=== PATIENT | male | born 1950 | race Caucasian/White ===

== ENCOUNTER 2017-02-08 23:25 | Emergency (ER) | payer MEDICARE, BC ==
[2017-02-09] MEDS ORDERED: MORPHINE SULFATE 5 MG/ML PFS IVP ONE ×2 (00:05→01:01)
[2017-02-09] MEDS ORDERED: ASPIRIN 325 MG TABLET PO ONE (00:05)
[2017-02-09] MEDS ORDERED: NITROGLYCERIN 0.4MG SL TABLET #25 BTL SL PRN (00:05)
--- NOTE | 2017-02-09 00:08 | Emergency Department Record ---
History of Present Illness - General Chief complaint: Extremity Problem Stated complaint: LEFT SHOULDER PAIN Time Seen by Provider: 02/09/17 00:01 Source: Patient Mode of Arrival: Ambulatory - History of Present Illness Initial comments: The patient has had increasing shoulder pain to his left shoulder for about 33 hours, around 3 p.m. on 02-07-17, he denies injury, but he states this happened to his right shoulder when he needed a rotator cuff repair. He is unable to lift his shoulder, and the pain is enough to not allow him to sleep. He denies chest pain, JANEL, N, sweating. Cardiac risks include 1/2PPD smoker, htn, elevated cholesterol. In the past he was worked up for cardiac problems for presenting with chest pain, but he was told it was not a heart attack. He denies PE, DVT, CVA. MD Complaint: Extremity pain Onset/Timin -: Days(s) Location: Left, Shoulder History of Same: No Severity scale (1-10): 8 Quality: Sharp Consistency: Constant, Getting worse Improves with: Rest Worsens with: Exertion Associated Symptoms: Denies other symptoms - Related Data Home Medications Medication Instructions Recorded Confirmed Last Taken Alprazolam [Xanax] 0.25 mg PO Q8H PRN 02/09/17 02/09/17 Unknown Aspirin 81 mg PO QPM 02/09/17 02/09/17 Unknown Atenolol [Tenormin] 100 mg PO DAILY 02/09/17 02/09/17 Unknown Gemfibrozil [Lopid] 600 mg PO BID 02/09/17 02/09/17 Unknown Ipratropium/Albuterol Sulfate 1 - 2 puff IH TID PRN 02/09/17 02/09/17 Unknown [Combivent] Omeprazole [Prilosec] 20 mg PO DAILY 02/09/17 02/09/17 Unknown Pravastatin Sodium [Pravachol] 40 mg PO QPM 02/09/17 02/09/17 Unknown Tadalafil [Cialis] 5 mg PO ASDIR PRN 02/09/17 02/09/17 Unknown Varenicline Tartrate [Chantix] 1 each PO DAILY 02/09/17 02/09/17 Unknown Zolpidem Tartrate [Ambien] 10 mg PO QHS 02/09/17 02/09/17 Unknown Previous Rx's Medication Instructions Recorded Hydrocodone/Acetaminophen [[place] 1 each PO Q8HR PRN #14 tablet 02/09/17 7.5-325 Tablet] Allergies Allergy/AdvReac Type Severity Reaction Status Date / Time ibuprofen Allergy Unknown RASH Verified 02/08/17 23:29 NSAIDS (Non-Steroidal Allergy Unknown RASH Verified 02/08/17 23:29 Anti-Inflamma Pyrazoles Allergy Unknown PT UNSURE Verified 02/08/17 23:29 OF REACTION Salicylates * Allergy Unknown PT UNSURE Verified 02/08/17 23:29 OF REACTION Travel Screening - Travel/Exposure Within Last 30 Days Have you traveled within the last 30 days?: No - Travel Symptoms Symptom Screening: None Review of Systems Reviewed: No additional complaints except as noted below Constitutional: Reports: As per HPI. Denies: Chills, Fever, Malaise, Night sweats, Weakness, Weight change Eyes: Reports: As per HPI. Denies: Eye discharge, Eye pain, Photophobia, Vision change ENT: Reports: As per HPI. Denies: Congestion, Dental pain, Ear pain, Epistaxis , Hearing loss, Throat pain Respiratory: Reports: As per HPI. Denies: Cough, Dyspnea, Hemoptysis, Stridor, Wheezes Cardiovascular: Reports: As per HPI. Denies: Arrhythmia, Chest pain, Dyspnea on exertion, Edema, Murmurs, Orthopnea, Palpitations, Paroxysmal nocturnal dyspnea, Rheumatic Fever, Syncope Endocrine: Reports: As per HPI. Denies: Fatigue, Heat or cold intolerance, Polydipsia, Polyuria Gastrointestinal: Reports: As per HPI. Denies: Abdominal pain, Constipation, Diarrhea, Hematemesis, Hematochezia, Melena, Nausea, Vomiting Genitourinary: Reports: As per HPI. Denies: Dysuria, Frequency, Hematuria, Incontinence, Retention, Testicular pain, Testicular mass, Urgency Musculoskeletal: Reports: As per HPI. Denies: Arthralgia, Back pain, Gout, Joint swelling, Myalgia, Neck pain Skin: Reports: As per HPI. Denies: Bruising, Change in color, Change in hair/ nails, Lesions, Pruritus, Rash Neurological: Reports: As per HPI. Denies: Abnormal gait, Confusion, Headache, Numbness, Paresthesias, Seizure, Tingling, Tremors, Vertigo, Weakness Psychiatric: Reports: As per HPI. Denies: Anxiety, Auditory hallucinations, Depression, Homicidal thoughts, Suicidal thoughts, Visual hallucinations Hematological/Lymphatic: Reports: As per HPI. Denies: Anemia, Blood Clots, Easy bleeding, Easy bruising, Swollen glands Past Medical History - SOCIAL HISTORY Smoking Status: Current every day smoker - RESPIRATORY Hx Respiratory Disorders: Yes Hx COPD: Yes Hx Sleep Apnea: Yes Hx of CPAP: No Comment:: sleep issues - CARDIOVASCULAR Hx Cardio Disorders: Yes Hx Cardiac Cath: Yes Hx Heart Attack: Yes Hx Hypertension: Yes Comment:: high cholesterol - NEURO Hx Neuro Disorders: No - GI Hx GI Disorders: Yes Hx Reflux: Yes - Hx Genitourinary Disorders: Yes Comment:: E.D. - ENDOCRINE Hx Endocrine Disorders: No - MUSCULOSKELETAL Hx Musculoskeletal Disorders: Yes - PSYCH Hx Psych Problems: No - HEMATOLOGY/ONCOLOGY Hx Hematology/Oncology Disorders: No Family Medical History Any Significant Family History?: Yes Hx Cancer: Mother, Brother/Sister *Cancer Comment: Lung Physical Exam - General General Appearance: Alert, Oriented x3, Cooperative, Moderate distress - Head Head exam: Normal inspection - Eye Eye exam: Normal appearance, PERRL Pupils: Normal accommodation - ENT ENT exam: Normal exam, Mucous membranes moist, Normal external ear exam, Normal orophraynx, TM's normal bilaterally Ear exam: Normal external inspection. negative: External canal tenderness Nasal Exam: Normal inspection. negative: Discharge, Sinus tenderness Mouth exam: Normal external inspection, Tongue normal Teeth exam: Normal inspection. negative: Dental caries Throat exam: Normal inspection. negative: Tonsillar erythema, Tonsillar exudate - Neck Neck exam: Normal inspection, Full ROM. negative: Tenderness - Respiratory Respiratory exam: Normal lung sounds bilaterally. negative: Respiratory distress - Cardiovascular Cardiovascular Exam: Regular rate, Normal rhythm, Normal heart sounds - GI/Abdominal GI/Abdominal exam: Soft, Normal bowel sounds. negative: Tenderness - Rectal Rectal exam: Deferred - exam: Deferred - Extremities Extremities exam: Normal inspection, Full ROM, Normal capillary refill, Tenderness (Right shoulder with tenderness over the joint and deltoid region, unable to perform ROM due to pain; distal pulses, strength and sensation intact , strong jai alai player equal bilaterally.). negative: Calf tenderness, Pedal edema - Back Back exam: Reports: Normal inspection, Full ROM. Denies: Muscle spasm, Rash noted, Tenderness - Neurological Neurological exam: Alert, Normal gait, Oriented X3, Reflexes normal - Psychiatric Psychiatric exam: Normal affect, Normal mood - Skin Skin exam: Dry, Intact, Normal color, Warm Course Vital Signs 02/08/17 23:32 Temperature 97.9 F Pulse Rate 76 Respiratory 16 Rate Blood Pressure 163/92 Pulse Ox 88 L - Reevaluation(s) Reevaluation #1: The patient's shoulder pain did not improve with nitro. His BP dropped moderately. He reports the pain has lessened when he keeps his shoulder at rest , but he is still unable to lift it up. Second morphine dose ordered. 02/09/17 01:02 02/09/17 01:09 Medical Decision Making - Data Complexity MDM Data: Labs Ordered and/or Reviewed, X-Ray Ordered and/or Reviewed (CTA Chest : No PE. Minimal subpleural fibrotic changes in lung bases. Emphysema.), EKG Ordered and/or Reviewed - Lab Data Result diagrams: 02/09/17 00:15 02/09/17 00:15 - EKG Data -: EKG Interpreted by Me EKG: No Acute Changes Disposition Disposition: Discharge Clinical Impression: Internal derangement of left shoulder Left shoulder pain Qualifiers: Chronicity: acute Qualified Code(s): M25.512 - Pain in left shoulder Disposition: Home, Self-Care Condition: (1) Good Instructions: Rotator Cuff Tendinitis (ED), Adhesive Capsulitis (ED) Additional Instructions: Sling left shoulder. No use of left arm. Perform range of motion exercises to gravity 4 times daily with sling off, then re apply sling. [place] as directed as needed for pain. Follow up with Dr[facility] as directed. Prescriptions: Hydrocodone/Acetaminophen [[place] 7.5-325 Tablet] 1 each PO Q8HR PRN #14 tablet PRN Reason: Pain - General Referrals: ILENE BRUNO [DOCTOR OF OSTEOPATH] - Quality - Quality Measures Quality Measures: N/A - Blood Pressure Screening Does Patient Have Any of the Following: No, Active Dx of HTN Blood Pressure Classification: Hypertensive Reading Systolic Measurement: 163 Diastolic Measurement: 92 Screening for High Blood Pressure: Patient Exclusion, Hx of HTN [G9744]
[2017-02-09 00:25] LABS: BASO % 0.1 % (0-6); EOS % 1.1 % (0-6); HEMATOCRIT 51.6 % (42.0-52.0); HEMOGLOBIN 16.9 gm/dl (14.0-18.0); MEAN CELL VOLUME 86.4 fl (81-97); MEAN CORPUSCULAR HEMOGLOBIN 28.3 pg (27-33); MEAN CORPUSCULAR HGB CONC 32.8 g/dl (32-36); MEAN PLATELET VOLUME 10.9 fl (7.4-10.4); PLATELET COUNT 189 K/uL (130-400); RED BLOOD COUNT 5.97 M/uL (4.40-5.70); RED CELL DISTRIBUTION WIDTH 15.6 % (11.5-14.5); WHITE BLOOD COUNT W/O DIFF 10.6 K/uL (4.2-12.2)
[2017-02-09 00:43] LABS: INR 1.06; PARTIAL THROMBOPLASTIN TIME 35.7 SECONDS (24.5-39.1); PROTHROMBIN TIME (PATIENT) 11.5 SECONDS (9.5-12.1)
[2017-02-09 00:46] LABS: D-DIMER 0.62 mg/L FEU (0-0.59)
[2017-02-09 01:11] LABS: BLOOD UREA NITROGEN 22 mg/dL (9-20); CREATININE 1.1 mg/dL (0.66-1.25); EST GLOMERULAR FILTRATION RATE > 60 ml/min; GLUCOSE,RANDOM 138 mg/dL (70-110)
[2017-02-09 01:41] LABS: THYROID STIMULATING HORMONE 1.28 uIU/ml (0.465-4.68)
[2017-02-09 01:42] LABS: TROPONIN I < 0.012 ng/mL (0.00-0.034)
[2017-02-09] MEDS ORDERED: HYDROCODONE/APAP 7.5/325MG TABLET PO ONE (03:03)
--- NOTE | 2017-02-09 13:49 | RADIOLOGY REPORT ---
EXAM: CHEST, TWO VIEWS HISTORY: ACUTE CHEST PAIN RADIATING TO THE LEFT SHOULDER. TECHNIQUE: Two views of the chest were obtained. Comparison: CTA of the chest 02/09/17. FINDINGS: Mildly prominent coarse reticular opacity throughout. No consolidative change. The cardiac silhouette, diaphragm, and osseous structures are unremarkable. IMPRESSION: MILD FIBROTIC CHANGE THROUGHOUT THE LUNGS. NO ACUTE INTRATHORACIC PROCESS. JOB NUMBER: [id number] MTDD
--- NOTE | 2017-02-09 13:51 | RADIOLOGY REPORT ---
EXAM: LEFT SHOULDER, THREE VIEWS HISTORY: ACUTE LEFT SHOULDER PAIN. NO INJURY. TECHNIQUE: Three views of the left shoulder were obtained. Comparison: None. FINDINGS: Abnormal osteoarthritic change of the left acromioclavicular joint and glenohumeral joint with small osteophytes. No fracture. The acromiohumeral distance is preserved. IMPRESSION: MINIMAL OSTEOARTHRITIC CHANGE OF THE LEFT SHOULDER. NO ACUTE PROCESS. JOB NUMBER: [id number] [facility]TDD
--- NOTE | 2017-02-09 14:35 | CT ANGIOGRAM REPORT ---
EXAM: CTA OF THE CHEST HISTORY: ACUTE LEFT UPPER CHEST PAIN RADIATING TO LEFT SHOULDER. TECHNIQUE: Contiguous axial images from the thoracic inlet to the upper abdomen were obtained after the uneventful intravenous administration of 74 ml of Omnipaque 350. Sagittal and coronal two dimensional MIP as well as 3D/MIP reformatted images were obtained for better anatomic delineation. Comparison: Chest x-ray 02/09/17. FINDINGS: Mild to moderate upper lobe centrilobular emphysema. Peripheral subpleural reticulation throughout the lungs of mild degree. No sinai honeycombing. No consolidative change. The heart is not enlarged and there is no pericardial effusion. Moderate coronary artery calcification. Mildly enlarged right paratracheal lymph nodes measuring up to 1.6 x 1.3 cm. Mildly prominent prevascular lymph node measures 2.4 x 0.9 cm. Mildly prominent right hilar lymph node measures approximately 2.4 x 1.1 cm and mildly prominent left infrahilar lymph node measures 1.6 x 0.8 cm. The pulmonary arteries are well opacified. No filling defect to suggest pulmonary embolism. No thoracic aortic dissection. Moderate calcification of the thoracic aorta. The upper abdomen is unremarkable. Moderate osteoarthritic change of the right glenohumeral joint with subcortical cysts and osteophytes. The left glenohumeral joint is unremarkable. No lytic or blastic osseous lesion. IMPRESSION: 1. NO EVIDENCE OF PULMONARY EMBOLISM OR THORACIC AORTIC DISSECTION. 2. MILD TO MODERATE EMPHYSEMA. 3. MILD FIBROTIC CHANGE THROUGHOUT THE LUNGS. 4. MILD MEDIASTINAL AND HILAR ADENOPATHY OF UNCERTAIN ETIOLOGY. GIVEN THE MILD FIBROSIS SOME POSSIBILITIES WOULD INCLUDE CHRONIC HYPERSENSITIVITY PNEUMONITIS, UIP OR COLLAGEN-VASCULAR DISEASE. JOB NUMBER: [id number] [facility]
== END 2017-02-09 03:21 | disposition home or self-care (01) ==
LOC: ER 23:25
DX: M24.812 Other specific joint derangements of left shoulder, not elsewhere classified (principal); J44.9 Chronic obstructive pulmonary disease, unspecified; I10 Essential (primary) hypertension; I25.2 Old myocardial infarction; F17.210 Nicotine dependence, cigarettes, uncomplicated
CPT/HCPCS: 99284 ×2; 96376; 96374; 85730; 85610; 84484; 80048; 84443; 85379; 85027; 71020; 73030; 71275; 93005; 93010; Q9967; J2270

== ENCOUNTER 2017-02-20 07:01 | Emergency (ER) | payer MEDICARE, BC ==
[2017-02-20] MEDS ORDERED: DEXAMETHASONE SOD PHOSPHATE 10MG/ML VIAL IVP ONE ×2 (07:07→07:09)
[2017-02-20] MEDS ORDERED: ACETAMINOPHEN 1,000 MG/100 ML BTL IVPB ONE (07:07)
[2017-02-20] MEDS ORDERED: KETOROLAC 30 MG/ML VIAL IVP ONE (07:09)
--- NOTE | 2017-02-20 07:15 | Emergency Department Record ---
History of Present Illness - General Chief complaint: Pain Stated complaint: PAIN ALL OVER Time Seen by Provider: 02/20/17 07:06 Source: Patient, Family Mode of Arrival: Ambulatory Limitations: No limitations - History of Present Illness Initial comments: 66 yo male presents with joint aches. His pain started two weeks ago in the left shoulder. Over the time his pain has increased and now both shoulders, wrists, feet and ankles hurt. No fevers. No rash. He has pain with any activity. He states he essentially hurts all over his body. He denies a history of similar symptoms in the past. He states he has been an active person his entire life. He has not seen his doctor for these symptoms. PCP Hank[facility]. MATUTE Complaint: Diffuse, Extremity pain, Joint pain -: Week(s) (2) Location: Right, Bilateral, Ankle, Foot, Shoulder, Other -: Yes Arthralgia Radiation: Distal Quality: Aching Consistency: Constant Improves with: Immobilization Worsens with: Exertion, Palpation, Walking, Weight bearing Associated Symptoms: Denies other symptoms - Related Data Home Medications Medication Instructions Recorded Confirmed Last Taken Alprazolam [Xanax] 0.25 mg PO Q8H PRN 02/09/17 02/20/17 02/19/17 Aspirin 81 mg PO QPM 02/09/17 02/20/17 02/19/17 Atenolol [Tenormin] 100 mg PO DAILY 02/09/17 02/20/17 02/19/17 Gemfibrozil [Lopid] 600 mg PO BID 02/09/17 02/20/17 02/19/17 Ipratropium/Albuterol Sulfate 1 - 2 puff IH TID PRN 02/09/17 02/20/17 02/19/17 [Combivent] Omeprazole [Prilosec] 20 mg PO DAILY 02/09/17 02/20/17 02/19/17 Pravastatin Sodium [Pravachol] 40 mg PO QPM 02/09/17 02/20/17 02/19/17 Tadalafil [Cialis] 5 mg PO ASDIR PRN 02/09/17 02/20/17 02/19/17 Zolpidem Tartrate [Ambien] 10 mg PO QHS 02/09/17 02/20/17 02/19/17 Previous Rx's Medication Instructions Recorded Hydrocodone/Acetaminophen [[place] 1 each PO TID #25 tablet 02/20/17 7.5-325 Tablet] Methylprednisolone [Medrol Dose 4 mg PO DAILY #1 tab.ds.pk 02/20/17 Pack] Allergies Allergy/AdvReac Type Severity Reaction Status Date / Time ibuprofen Allergy Unknown RASH Verified 02/20/17 07:09 NSAIDS (Non-Steroidal Allergy Unknown RASH Verified 02/20/17 07:09 Anti-Inflamma Pyrazoles Allergy Unknown PT UNSURE Verified 02/20/17 07:09 OF REACTION Salicylates * Allergy Unknown PT UNSURE Verified 02/20/17 07:09 OF REACTION Review of Systems Constitutional: Reports: Malaise. Denies: Chills, Fever, Weakness Eyes: Denies: Eye discharge, Eye pain, Photophobia, Vision change ENT: Denies: Congestion, Ear pain, Epistaxis, Hearing loss, Throat pain Respiratory: Denies: Cough, Dyspnea, Hemoptysis, Stridor, Wheezes Cardiovascular: Denies: Arrhythmia, Chest pain, Palpitations, Syncope Endocrine: Denies: Fatigue, Polydipsia, Polyuria Gastrointestinal: Denies: Abdominal pain, Diarrhea, Nausea, Vomiting Genitourinary: Denies: Discharge, Dysuria, Frequency, Hematuria Musculoskeletal: Reports: As per HPI, Arthralgia, Joint swelling, Myalgia. Denies: Gout Skin: Denies: Bruising, Change in color, Rash Neurological: Denies: Confusion, Headache, Numbness, Tingling, Tremors, Weakness Psychiatric: Denies: Anxiety Hematological/Lymphatic: Denies: Blood Clots, Easy bleeding, Easy bruising, Swollen glands Past Medical History - SOCIAL HISTORY Smoking Status: Current every day smoker - RESPIRATORY Hx Respiratory Disorders: Yes Hx COPD: Yes Hx Sleep Apnea: Yes Hx of CPAP: No Comment:: sleep issues - CARDIOVASCULAR Hx Cardio Disorders: Yes Hx Cardiac Cath: Yes Hx Heart Attack: Yes Hx Hypertension: Yes Comment:: high cholesterol - NEURO Hx Neuro Disorders: No - GI Hx GI Disorders: Yes Hx Reflux: Yes - Hx Genitourinary Disorders: Yes Comment:: E.D. - ENDOCRINE Hx Endocrine Disorders: No - MUSCULOSKELETAL Hx Musculoskeletal Disorders: Yes - PSYCH Hx Psych Problems: No - HEMATOLOGY/ONCOLOGY Hx Hematology/Oncology Disorders: No Family Medical History Hx Cancer: Mother, Brother/Sister *Cancer Comment: Lung Physical Exam - General General Appearance: Alert, Oriented x3, Cooperative, No acute distress Limitations: No limitations - Head Head exam: Normal inspection - Eye Eye exam: Normal appearance. negative: Conjunctival injection, Periorbital swelling - ENT ENT exam: Normal exam, Mucous membranes moist Ear exam: Normal external inspection Nasal Exam: Normal inspection Mouth exam: Normal external inspection Throat exam: Normal inspection - Neck Neck exam: Normal inspection, Full ROM. negative: Tenderness - Respiratory Respiratory exam: Normal lung sounds bilaterally. negative: Respiratory distress - Cardiovascular Cardiovascular Exam: Regular rate, Normal rhythm, Normal heart sounds Peripheral Pulses: 2+: Radial (R), Radial (L) - GI/Abdominal GI/Abdominal exam: Soft. negative: Tenderness - Rectal Rectal exam: Deferred - exam: Deferred - Extremities Extremities exam: Full ROM, Joint swelling, Normal capillary refill, Tenderness. negative: Calf tenderness, Pedal edema Image of Full Body: 1 - pain 2 - pain mild right wrist swelling, no warmth, intact pulses 3 - pain 4 - pain - Back Back exam: Reports: Normal inspection, Full ROM. Denies: CVA tenderness (R), CVA tenderness (L), Muscle spasm, Paraspinal tenderness, Rash noted, Tenderness , Vertebral tenderness - Neurological Neurological exam: Alert, Normal gait, Oriented X3, Reflexes normal - Psychiatric Psychiatric exam: Normal affect, Normal mood - Skin Skin exam: Dry, Intact, Normal color, Warm Course - Reevaluation(s) Reevaluation #1: The patient has diffuse body pain. At this time his greatest pain are in the shoulders, wrists, and feet/ankles. 02/20/17 07:15 Reevaluation #2: The CBC was reviewed No acute changes of the WBC of Hgb CMP No acute changes CRP elevated at 4.5 02/20/17 07:54 ESR is 35 XR of the foot demonstrates STS with severe arthritis He has pains is bother shoulders, wrists, and feet. The right foot was XR'd due to it was the most significant area of pain. He will be provided a boot with crutches. I will discuss the case with Dr Kevin for follow up tomorrow. We discussed this could be an autoimmune issue given the recent CT findings as well of adenopathy with some interstitial lung disease. 02/20/17 08:17 Reevaluation #3: I SW Dr Kevin He will follow up with the patient as scheduled tomorrow in the office We discussed the various joints that ache with the labs. He will conduct any follow up testing as needed 02/20/17 09:11 Medical Decision Making - Lab Data Result diagrams: 02/20/17 07:15 02/20/17 07:15 Disposition Disposition: Discharge Clinical Impression: Arthralgia Qualifiers: Joint pain location: unspecified Qualified Code(s): M25.50 - Pain in unspecified joint Disposition: Home, Self-Care Condition: (1) Good Instructions: Arthralgia (ED) Additional Instructions: Follow up with Dr Kevin tomorrow as scheduled Return if you have fever, uncontrolled pain, or any new concerns Prescriptions: Hydrocodone/Acetaminophen [[place] 7.5-325 Tablet] 1 each PO TID #25 tablet Methylprednisolone [Medrol Dose Pack] 4 mg PO DAILY #1 tab.ds.pk Forms: Patient Portal Access Time of Disposition: 09:13 Quality - Quality Measures Quality Measures: N/A - Blood Pressure Screening Does Patient Have Any of the Following: No Blood Pressure Classification: Hypertensive Reading Systolic Measurement: 165 Diastolic Measurement: 106 Screening for High Blood Pressure: < Pre-Hypertensive BP, F/U Documented > [ G8950] Pre-Hypertensive Follow-up Interventions: Referral to alternative/primary care provider.
[2017-02-20 07:25] LABS: HEMATOCRIT 50.5 % (42.0-52.0); HEMOGLOBIN 16.8 gm/dl (14.0-18.0); MEAN CELL VOLUME 84.6 fl (81-97); MEAN CORPUSCULAR HEMOGLOBIN 28.1 pg (27-33); MEAN CORPUSCULAR HGB CONC 33.3 g/dl (32-36); MEAN PLATELET VOLUME 10.2 fl (7.4-10.4); PLATELET COUNT 215 K/uL (130-400); RED BLOOD COUNT 5.97 M/uL (4.40-5.70); RED CELL DISTRIBUTION WIDTH 15.2 % (11.5-14.5); WHITE BLOOD COUNT W/O DIFF 10.3 K/uL (4.2-12.2)
[2017-02-20 07:42] LABS: ALB/GLOB RATIO 1.1 (1.1-1.8); ALBUMIN 4.2 gm/dL (3.5-5.0); ALKALINE PHOSPHATASE 92 U/L (38-126); ALT/SGPT 28 U/L (21-72); ANION GAP 8.1 (7-16); AST/SGOT 19 U/L (17-59); BILIRUBIN,TOTAL 0.76 mg/dL (0.2-1.3); BLOOD UREA NITROGEN 19 mg/dL (9-20); C-REACTIVE PROTEIN 4.9 mg/dL (0.0-0.9); CARBON DIOXIDE 26.9 mmol/L (22-30); CREATINE PHOSPHOKINASE 77 U/L (55-170); EST GLOMERULAR FILTRATION RATE > 60 ml/min; GLUCOSE,RANDOM 142 mg/dL (70-110); TOTAL PROTEIN 8.1 gm/dL (6.3-8.2)
[2017-02-20] MEDS ORDERED: HYDROCODONE/APAP 10/325 TABLET PO ONE (08:05)
[2017-02-20 08:08] LABS: ERYTHROCYTE SEDIMENTATION RATE 35 mm/hr (0-20)
--- NOTE | 2017-02-21 08:26 | RADIOLOGY REPORT ---
EXAM: RIGHT FOOT, THREE VIEWS HISTORY: TWO WEEKS SEVERE PAIN RIGHT FOOT. TECHNIQUE: Three views of the right foot were obtained. Comparison: None. FINDINGS: No acute fracture. Severe osteoarthritic change of the right first MTP with joint space narrowing and prominent osteophytes. No fracture. Mild soft tissue swelling of the mid foot. IMPRESSION: 1. NO ACUTE OSSEOUS ABNORMALITY OF THE RIGHT FOOT. 2. MILD SOFT TISSUE SWELLING IN THE RIGHT MID FOOT. 3. SEVERE OSTEOARTHRITIC CHANGE OF THE RIGHT FIRST MTP. [facility]: [id number] [facility]
== END 2017-02-20 09:42 | disposition home or self-care (01) ==
LOC: ER 07:01
DX: M25.571 Pain in right ankle and joints of right foot (principal); M25.512 Pain in left shoulder; M25.511 Pain in right shoulder; M25.572 Pain in left ankle and joints of left foot; M25.531 Pain in right wrist; I10 Essential (primary) hypertension; I25.2 Old myocardial infarction; F17.210 Nicotine dependence, cigarettes, uncomplicated
CPT/HCPCS: 99284 ×2; 96365; 96375; 84550; 82550; 83735; 85651; 86140; 80053; 85027; 73630; J1885; J3490; J1100

== ENCOUNTER 2017-08-26 07:30 | Emergency (ER) | payer MEDICARE ==
[2017-08-26] MEDS ORDERED: METHYLNALTREXONE BROMIDE (RELISTOR) 12MG/0.6ML SYRINGE SQ ONE (08:09)
[2017-08-26 08:13] LABS: BASO % 0.1 % (0-6); EOS % 0.7 % (0-6); GRAN % 79.6 % (47-80); HEMATOCRIT 49.9 % (42.0-52.0); HEMOGLOBIN 16.3 gm/dl (14.0-18.0); MEAN CELL VOLUME 84.4 fl (81-97); MEAN CORPUSCULAR HEMOGLOBIN 27.5 pg (27-33); MEAN CORPUSCULAR HGB CONC 32.7 g/dl (32-36); MEAN PLATELET VOLUME 10.6 fl (7.4-10.4); MONO % 7.6 % (0-9); PLATELET COUNT 267 K/uL (130-400); RED BLOOD COUNT 5.91 M/uL (4.40-5.70); RED CELL DISTRIBUTION WIDTH 21.4 % (11.5-14.5); WHITE BLOOD COUNT W/O DIFF 8.8 K/uL (4.2-12.2)
--- NOTE | 2017-08-26 08:20 | Emergency Department Record ---
History of Present Illness - General Chief Complaint: Abdominal Pain Stated Complaint: STOMACH BLOATED Time Seen by Provider: 08/26/17 07:59 Source: Patient, RN notes reviewed Mode of Arrival: Ambulatory - History of Present Illness Initial Comments: constipation secondary to oxycontin. Patient started on this about 6 weeks ago for RA and he has not had a BM for 4 days. He had a colonoscopy 3 years ago and no pathology.Patient has tried miralax and senna without relief. Onset/Timin -: Days(s) Location: Diffuse Radiation: None Consistency: Constant Improves With: Nothing Worsens With: Other Associated Symptoms: Denies other symptoms - Related Data Home Medications Medication Instructions Recorded Confirmed Last Taken Methotrexate Sodium [Trexall] 2.5 mg PO WEEKLY 08/26/17 08/26/17 Unknown Oxycodone HCl/Acetaminophen 10 mg PO Q6H 08/26/17 08/26/17 Unknown [Percocet 10mg/325mg] Prednisone [Prednisone 5Mg] 5 mg PO DAILY 08/26/17 08/26/17 Unknown Allergies Allergy/AdvReac Type Severity Reaction Status Date / Time ibuprofen Allergy Unknown RASH Verified 02/20/17 07:09 NSAIDS (Non-Steroidal Allergy Unknown RASH Verified 02/20/17 07:09 Anti-Inflamma Pyrazoles Allergy Unknown PT UNSURE Verified 02/20/17 07:09 OF REACTION Salicylates * Allergy Unknown PT UNSURE Verified 02/20/17 07:09 OF REACTION Travel Screening - Travel/Exposure Within Last 30 Days Have you traveled within the last 30 days?: No Review of Systems Reviewed: No additional complaints except as noted below Constitutional: Reports: As per HPI. Denies: Chills, Fever, Malaise, Night sweats, Weakness, Weight change Eyes: Reports: As per HPI. Denies: Eye discharge, Eye pain, Photophobia, Vision change ENT: Reports: As per HPI. Denies: Congestion, Dental pain, Ear pain, Epistaxis , Hearing loss, Throat pain Respiratory: Reports: As per HPI. Denies: Cough, Dyspnea, Hemoptysis, Stridor, Wheezes Cardiovascular: Reports: As per HPI. Denies: Arrhythmia, Chest pain, Dyspnea on exertion, Edema, Murmurs, Orthopnea, Palpitations, Paroxysmal nocturnal dyspnea, Rheumatic Fever, Syncope Endocrine: Reports: As per HPI. Denies: Fatigue, Heat or cold intolerance, Polydipsia, Polyuria Gastrointestinal: Reports: As per HPI, Constipation. Denies: Abdominal pain, Diarrhea, Hematemesis, Hematochezia, Melena, Nausea, Vomiting Genitourinary: Reports: As per HPI. Denies: Dysuria, Frequency, Hematuria, Incontinence, Retention, Testicular pain, Testicular mass, Urgency Musculoskeletal: Reports: As per HPI. Denies: Arthralgia, Back pain, Gout, Joint swelling, Myalgia, Neck pain Skin: Reports: As per HPI. Denies: Bruising, Change in color, Change in hair/ nails, Lesions, Pruritus, Rash Neurological: Reports: As per HPI. Denies: Abnormal gait, Confusion, Headache, Numbness, Paresthesias, Seizure, Tingling, Tremors, Vertigo, Weakness Psychiatric: Reports: As per HPI. Denies: Anxiety, Auditory hallucinations, Depression, Homicidal thoughts, Suicidal thoughts, Visual hallucinations Hematological/Lymphatic: Reports: As per HPI. Denies: Anemia, Blood Clots, Easy bleeding, Easy bruising, Swollen glands Past Medical History - SOCIAL HISTORY Smoking Status: Current every day smoker Alcohol Use: Rare Drug Use: None - RESPIRATORY Hx Respiratory Disorders: Yes Hx COPD: Yes Hx Sleep Apnea: Yes Hx of CPAP: No Comment:: sleep issues - CARDIOVASCULAR Hx Cardio Disorders: Yes Hx Cardiac Cath: Yes Hx Heart Attack: Yes Hx Hypertension: Yes Comment:: high cholesterol - NEURO Hx Neuro Disorders: No - GI Hx GI Disorders: Yes Hx Reflux: Yes - Hx Genitourinary Disorders: Yes Comment:: E.D. - ENDOCRINE Hx Endocrine Disorders: No - MUSCULOSKELETAL Hx Musculoskeletal Disorders: Yes - PSYCH Hx Psych Problems: No - HEMATOLOGY/ONCOLOGY Hx Hematology/Oncology Disorders: No Family Medical History Any Significant Family History?: Yes Hx Cancer: Mother, Brother/Sister *Cancer Comment: Lung Physical Exam - General General Appearance: Alert, Oriented x3, Cooperative, No acute distress - Head Head exam: Normal inspection - Eye Eye exam: Normal appearance, PERRL Pupils: Normal accommodation - ENT ENT exam: Normal exam, Mucous membranes moist, Normal external ear exam, Normal orophraynx, TM's normal bilaterally Ear exam: Normal external inspection. negative: External canal tenderness Nasal Exam: Normal inspection. negative: Discharge, Sinus tenderness Mouth exam: Normal external inspection, Tongue normal Teeth exam: Normal inspection. negative: Dental caries Throat exam: Normal inspection. negative: Tonsillar erythema, Tonsillar exudate - Neck Neck exam: Normal inspection, Full ROM. negative: Tenderness - Respiratory Respiratory exam: Normal lung sounds bilaterally. negative: Respiratory distress - Cardiovascular Cardiovascular Exam: Regular rate, Normal rhythm, Normal heart sounds - GI/Abdominal GI/Abdominal exam: Soft, Normal bowel sounds. negative: Tenderness - Rectal Rectal exam: Deferred - exam: Deferred - Extremities Extremities exam: Normal inspection, Full ROM, Normal capillary refill. negative: Tenderness - Back Back exam: Reports: Normal inspection, Full ROM. Denies: Muscle spasm, Rash noted, Tenderness - Neurological Neurological exam: Alert, Normal gait, Oriented X3, Reflexes normal - Psychiatric Psychiatric exam: Normal affect, Normal mood - Skin Skin exam: Dry, Intact, Normal color, Warm Course Vital Signs 08/26/17 07:33 Temperature 98.5 F Pulse Rate 56 L Respiratory 22 Rate Blood Pressure 141/127 Pulse Ox 94 L good results from enema Medical Decision Making - Lab Data Result diagrams: 08/26/17 08:12 08/26/17 08:12 Disposition Clinical Impression: Constipation Qualifiers: Constipation type: drug induced constipation Qualified Code(s): K59.03 - Drug induced constipation Disposition: Home, Self-Care Condition: (1) Good Instructions: Constipation (ED) Additional Instructions: use miralax daily and senna daily follow up with family Forms: Patient Portal Access Time of Disposition: 09:21 Quality - Quality Measures Quality Measures: N/A - Blood Pressure Screening Does Patient Have Any of the Following: No, Active Dx of HTN Blood Pressure Classification: Hypertensive Reading Systolic Measurement: 141 Diastolic Measurement: 127 Screening for High Blood Pressure: Patient Exclusion, Hx of HTN [G9744]
[2017-08-26 08:23] LABS: BLOOD UREA NITROGEN 24 mg/dL (8-23); EST GLOMERULAR FILTRATION RATE > 60 mL/min
[2017-08-26 08:26] LABS: GLUCOSE,RANDOM 143 mg/dL (74-109)
== END 2017-08-26 09:30 | disposition home or self-care (01) ==
LOC: ER 07:30
DX: K59.03 Drug induced constipation (principal); T40.2X5A Adverse effect of other opioids, initial encounter; M06.9 Rheumatoid arthritis, unspecified; I10 Essential (primary) hypertension; I25.2 Old myocardial infarction; F17.210 Nicotine dependence, cigarettes, uncomplicated
CPT/HCPCS: 80048; 85025; 99283

== ENCOUNTER 2017-08-30 06:34 | Emergency (ER) | payer MEDICARE ==
[2017-08-30 07:00] LABS: EOS % 0.9 % (0-6); GRAN % 78.7 % (47-80); HEMATOCRIT 49.5 % (42.0-52.0); HEMOGLOBIN 16.4 gm/dl (14.0-18.0); LYMPH % 12.8 % (16-45); MEAN CORPUSCULAR HEMOGLOBIN 27.8 pg (27-33); MEAN CORPUSCULAR HGB CONC 33.1 g/dl (32-36); MEAN PLATELET VOLUME 10.8 fl (7.4-10.4); MONO % 7.6 % (0-9); PLATELET COUNT 253 K/uL (130-400); RED BLOOD COUNT 5.89 M/uL (4.40-5.70); RED CELL DISTRIBUTION WIDTH 21.1 % (11.5-14.5); WHITE BLOOD COUNT W/O DIFF 8.8 K/uL (4.2-12.2)
[2017-08-30] MEDS ORDERED: 0.9 % SODIUM CHLORIDE 1000ML 500 ML IV SCH (07:00)
[2017-08-30 07:10] LABS: BLOOD UREA NITROGEN 26 mg/dL (8-23); EST GLOMERULAR FILTRATION RATE > 60 mL/min
[2017-08-30 07:11] LABS: TOTAL PROTEIN 7.1 g/dL (6.6-8.7)
[2017-08-30 07:13] LABS: GLUCOSE,RANDOM 131 mg/dL (74-109)
[2017-08-30] MEDS ORDERED: METOPROLOL TART 5 MG/5 ML VIAL IV ONE (07:14)
--- NOTE | 2017-08-30 07:14 | Emergency Department Record ---
History of Present Illness - General Chief Complaint: Abdominal Pain Stated Complaint: ABD PAIN Time Seen by Provider: 08/30/17 06:52 Source: Patient Mode of Arrival: Ambulatory Limitations: No limitations - History of Present Illness Initial Comments: The patient is here due to a one week hx of abdominal bloating and constipation. The patient states he started Oxycodone 3 weeks ago for RA pain but did stop it a week ago due to the constipation. He was here in the ER 4 days ago and did receive an enema and was better. Now he is having more JANEL and a little leg swelling. He denies any CP, fever, chills, or back pain. The patient does state he has had palpitations off and on for weeks but it does not really bother him much. MD Complaint: Abdominal pain Onset/Timin -: Week(s) Severity: Moderate Consistency: Getting worse Improves With: Nothing Worsens With: Nothing Associated Symptoms: Constipation - Related Data Allergies Allergy/AdvReac Type Severity Reaction Status Date / Time ibuprofen Allergy Unknown RASH Verified 02/20/17 07:09 NSAIDS (Non-Steroidal Allergy Unknown RASH Verified 02/20/17 07:09 Anti-Inflamma Pyrazoles Allergy Unknown PT UNSURE Verified 02/20/17 07:09 OF REACTION Salicylates * Allergy Unknown PT UNSURE Verified 02/20/17 07:09 OF REACTION Travel Screening - Travel/Exposure Within Last 30 Days Have you traveled within the last 30 days?: No - Travel/Exposure Within Last Year Have you traveled outside the [place] in the last year?: No - Additonal Travel Details Have you been exposed to anyone with a communicable illness?: No - Travel Symptoms Symptom Screening: None Review of Systems Constitutional: Denies: Chills, Fever Eyes: Denies: Eye discharge ENT: Denies: Congestion Respiratory: Reports: Dyspnea. Denies: Cough Cardiovascular: Denies: Arrhythmia, Chest pain Endocrine: Reports: Fatigue Gastrointestinal: Reports: Constipation Genitourinary: Denies: Dysuria Musculoskeletal: Denies: Arthralgia Past Medical History - SOCIAL HISTORY Smoking Status: Current every day smoker Alcohol Use: None Drug Use: None - RESPIRATORY Hx Respiratory Disorders: Yes Hx COPD: Yes Hx Sleep Apnea: Yes Hx of CPAP: No Comment:: sleep issues - CARDIOVASCULAR Hx Cardio Disorders: Yes Hx Cardiac Cath: Yes Hx Heart Attack: Yes Hx Hypertension: Yes Comment:: high cholesterol - NEURO Hx Neuro Disorders: No - GI Hx GI Disorders: Yes Hx Reflux: Yes - Hx Genitourinary Disorders: Yes Comment:: E.D. - ENDOCRINE Hx Endocrine Disorders: No - MUSCULOSKELETAL Hx Musculoskeletal Disorders: Yes - PSYCH Hx Psych Problems: No - HEMATOLOGY/ONCOLOGY Hx Hematology/Oncology Disorders: No Family Medical History Any Significant Family History?: Yes Hx Cancer: Mother, Brother/Sister *Cancer Comment: Lung Physical Exam - General General Appearance: Alert, Oriented x3, Cooperative, No acute distress - Head Head exam: Atraumatic, Normocephalic, Normal inspection - Eye Eye exam: Normal appearance, PERRL - ENT Throat exam: Normal inspection. negative: Tonsillar erythema, Tonsillar exudate - Neck Neck exam: Normal inspection, Full ROM. negative: Tenderness - Respiratory Respiratory exam: Decreased breath sounds. negative: Stridor, Wheezes - Cardiovascular Cardiovascular Exam: Irregular rhythm. 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 His HR is 100-120 in Afib and blood pressure stable. He has been back from [place] for a few minutes and appears very comfortable and nontoxic. I did explain to him that it appears the Afib is causing him to be in heart failure. We will give him some IV Lasix and will need to transfer him to a larger hospital. The patient would like to go to [facility] so we will contact them soon for transfer. 08/30/17 07:55 Reevaluation #2: The patient is doing well. His HR is improved and is running around 110 with a stable BP. The abdominal CT does not demonstrate any surgical pathology to the abdomen. Due to that fact we will consult Cardiology and will transfer the patient to [facility]. 08/30/17 08:22 Reevaluation #3: The patient is doing very well at this time. He did urinate 750 cc's at this time and denies any CP or SOB. I did discuss the case with Dr. Moss at [facility] and he does accept the patient in transfer. 08/30/17 08:44 Reevaluation #4: The patient is doing very well at this time. He has diuresed over 1500 cc's of urine and his vitals are stable. The HR is 100-110 and his BP is stable. 08/30/17 12:08 Reevaluation #5: The patient's HR is not slightly elevated at 130's. Due to that fact we will start the patient on Cardizem. 08/30/17 14:20 08/30/17 15:12 The patient's HR is much better at this time. It is mainly around 100 at this time and the patient denies any pain or SOB. Medical Decision Making - Data Complexity MDM Data: Labs Ordered and/or Reviewed, X-Ray Ordered and/or Reviewed, EKG Ordered and/or Reviewed - Lab Data Result diagrams: 08/30/17 06:50 08/30/17 06:50 Lab Results 08/30/17 08/30/17 08/30/17 Range/Units 06:50 06:50 06:50 WBC 8.8 (4.2-12.2) K/uL RBC 5.89 H (4.40-5.70) M/uL Hgb 16.4 (14.0-18.0) gm/dl Hct 49.5 (42.0-52.0) % MCV 84.0 (81-97) fl MCH 27.8 (27-33) pg MCHC 33.1 (32-36) g/dl RDW 21.1 H (11.5-14.5) % Plt Count 253 (130-400) K/uL MPV 10.8 H (7.4-10.4) fl Gran % 78.7 (47-80) % Lymphocytes % 12.8 L (16-45) % Monocytes % 7.6 (0-9) % Eosinophils % 0.9 (0-6) % Basophils % 0.0 (0-6) % Lactic Acid Cancelled 1.2 - EKG Data -: EKG Interpreted by Me (New onset Afib with RVR.) - Radiology Data Radiology results: Report reviewed (CXR: CHF) Disposition Disposition: Transfer Clinical Impression: Atrial fibrillation with RVR Disposition: Acute Care Hospital Transfer Transfer To: [facility] Reason For Transfer: Afib with RVR Accepting Physician: Isa Time Discussed w/Accepting Physician: 08:46 Condition: (2) Stable Instructions: A-fib (Atrial Fibrillation) (ED) Forms: Patient Portal Access Time of Disposition: 08:46 Quality - Quality Measures Quality Measures: N/A - Blood Pressure Screening View Details: Yes Does Patient Have Any of the Following: No Blood Pressure Classification: Hypertensive Reading Systolic Measurement: 114 Diastolic Measurement: 96 Screening for High Blood Pressure: < First Hypertensive BP, F/U Documented > [ G8950] First Hypertensive Follow-up Interventions: Referral to alternative/primary care provider.
[2017-08-30 07:16] LABS: ALB/GLOB RATIO 0.9 (1.1-1.8); ALBUMIN 3.3 g/dL (4.0-5.0); ALKALINE PHOSPHATASE 139 U/L (40-129); ALT/SGPT 32 U/L (<41); AST/SGOT 25 U/L (10.0-50.0)
[2017-08-30 07:27] LABS: INR 1.3; PARTIAL THROMBOPLASTIN TIME 28.5 SECONDS (24.5-39.1)
[2017-08-30] MEDS ORDERED: FUROSEMIDE IV 40MG/4ML VIAL IVP ONE (07:30)
[2017-08-30] MEDS ORDERED: HEPARIN SODIUM 1000 UNIT/1 ML 10ML VIAL IVP ONE (08:30)
[2017-08-30] MEDS ORDERED: HEPARIN SODIUM/D5W 25,000 UNITS/500 ML BAG IV SCH (08:30)
[2017-08-30] MEDS ORDERED: POTASSIUM CHLORIDE 20 MEQ TABLET PO ONE (13:45)
[2017-08-30] MEDS ORDERED: DILTIAZEM 25MG/5ML VIAL IV ONE (14:07)
--- NOTE | 2017-08-31 09:03 | RADIOLOGY REPORT ---
EXAM: CHEST, ONE VIEW HISTORY: DIFFICULTY IN BREATHING. ABDOMINAL DISTENTION. BILATERAL LOWER EXTREMITY SWELLING. TECHNIQUE: Upright AP and lateral views of the chest were obtained. Comparison: Two view chest radiographic examination dated 07/25/17. FINDINGS: The cardiac silhouette projects borderline to mildly enlarged. There are mixed primarily reticular opacities scattered in each lung. These appear slightly more pronounced in the interval raising concern for mild acute edema or infiltrate superimposed on chronic interstitial changes. The lungs and pleural spaces are otherwise clear. There are degenerative changes of the visualized spine and shoulder girdles. IMPRESSION: 1. THE HEART NOW PROJECTS BORDERLINE TO MILDLY ENLARGED. 2. MIXED PRIMARILY RETICULAR OPACITIES SCATTERED IN EACH LUNG APPEARING SLIGHTLY MORE PRONOUNCED IN THE INTERVAL RAISING THE POSSIBILITY OF MILD ACUTE EDEMA OR INFILTRATE SUPERIMPOSED ON CHRONIC INTERSTITIAL CHANGE. JOB NUMBER: [id number] [facility]
--- NOTE | 2017-08-31 09:19 | CT SCAN REPORT ---
EXAM: CT OF THE ABDOMEN AND PELVIS WITHOUT CONTRAST HISTORY: ABDOMINAL SWELLING FOR ONE WEEK. TECHNIQUE: Helical CT examination of the abdomen and pelvis was performed without oral or intravenous contrast administration. Comparison: CT of the chest with contrast dated 05/15/17. FINDINGS: The heart is borderline enlarged. Diffuse atherosclerotic calcification of the coronary arteries. Mixed primarily reticular opacities are again noted in each lung base, right greater than left. These appear slightly more pronounced in the interval raising the possibility of mild edema or infiltrate superimposed on chronic interstitial change. There is a new tiny dependent right pleural effusion. No focal abnormality is demonstrated within the liver, spleen, pancreas, adrenal glands, nor left kidney. There is a small hypodense mass arising exophytically from the lower pole of the right kidney measuring approximately 1.4 cm in diameter. This is nonspecific, but likely a cyst. No cholelithiasis. The wall of the gallbladder appears somewhat prominent in thickness. This may be partially explained by incomplete distention. No biliary ductal dilatation. No new intraabdominal nor retroperitoneal lymphadenopathy. No pelvic mass, lymphadenopathy, or free pelvic fluid. No intrinsic urinary bladder abnormality. Fat density prominence is demonstrated in each inguinal canal left greater than right consistent with spermatic cord lipomas or fat within small inguinal hernia sacs. There is a new small volume of ascites. There is new subcutaneous edema throughout the trunk consistent with anasarca. IMPRESSION: 1. MILD TO MODERATE MIXED OPACITIES WITHIN THE LOWER LUNGS APPEARING SLIGHTLY MORE PRONOUNCED IN THE INTERVAL RAISING THE POSSIBILITY OF MINOR INFILTRATE OR EDEMA SUPERIMPOSED ON CHRONIC INTERSTITIAL CHANGES. 2. BORDERLINE CARDIOMEGALY. NEW TINY DEPENDENT RIGHT PLEURAL EFFUSION. 3. NEW SMALL VOLUME OF ASCITES. ANASARCA. 4. NOT MENTIONED ABOVE IS DIVERTICULOSIS OF THE LEFT COLON WITHOUT EVIDENCE OF DIVERTICULITIS. 5. APPARENT MILD WALL THICKENING OF THE GALLBLADDER WHICH MAY BE PARTIALLY EXPLAINED BY INCOMPLETE DISTENTION. THIS COULD ALSO BE SEEN WITH A HYPOPROTEINEMIC STATE. INFLAMMATION LESS LIKELY. 6. PROBABLE SMALL CYST ARISING EXOPHYTICALLY FROM THE LOWER POLE OF THE LEFT KIDNEY. JOB NUMBER: [id number] [facility]
== END 2017-08-30 15:44 | disposition short-term general hospital (02) ==
LOC: ER 06:34
DX: I48.0 Paroxysmal atrial fibrillation (principal); R10.84 Generalized abdominal pain; R06.00 Dyspnea, unspecified; M06.9 Rheumatoid arthritis, unspecified; I50.9 Heart failure, unspecified; I10 Essential (primary) hypertension; I25.2 Old myocardial infarction; F17.210 Nicotine dependence, cigarettes, uncomplicated
CPT/HCPCS: 71045; 74176; 80053; 83605; 83880; 84484; 85025; 85610; 85730; 93005; 93010; 96365; 96366; 96375; 99285; J1940; J7030

== ENCOUNTER 2017-09-08 17:16 | Emergency (ER) | payer MEDICARE ==
[2017-09-08] MEDS ORDERED: RIVAROXABAN 20 MG TABLET PO ONE (17:30)
[2017-09-08 17:57] LABS: HEMATOCRIT 52.4 % (42.0-52.0); HEMOGLOBIN 17.1 gm/dl (14.0-18.0); MEAN CELL VOLUME 83.8 fl (81-97); MEAN CORPUSCULAR HGB CONC 32.6 g/dl (32-36); MEAN PLATELET VOLUME 10.7 fl (7.4-10.4); PLATELET COUNT 201 K/uL (130-400); RED BLOOD COUNT 6.25 M/uL (4.40-5.70); RED CELL DISTRIBUTION WIDTH 20.7 % (11.5-14.5); WHITE BLOOD COUNT W/O DIFF 9.2 K/uL (4.2-12.2)
[2017-09-08 18:00] LABS: MEAN CORPUSCULAR HEMOGLOBIN 27.3 pg (27-33)
--- NOTE | 2017-09-08 18:05 | Emergency Department Record ---
History of Present Illness - General Chief Complaint: Arrythmia/Palpitations Stated Complaint: HIGH BP/SHAKEY Time Seen by Provider: 09/08/17 17:46 Source: Patient Mode of Arrival: Ambulatory Limitations: No limitations - History of Present Illness Initial Comments: The patient is here due to developing palpitations and SOB this AM after waking up. He was recently admitted to [facility] a week ago due to new onset Afib and was discharged 4 days ago. The patient had been well up until this AM when he felt like he may be in Afib again. Additionally he became nervous and his BP was mildly elevated. There was no complaint of chest pain, back pain, cough, or fever. Due to the recent events he presented to the ER for treatment. Presently the patient feels much better and feels he is back to normal. The patient was discharge on Xarelto but has not taken it for 3 days due to needing it preauthorized. Complaint: Palpitations Onset/Timin -: Days(s) Context: Awoke with symptoms, Occurred during rest Arrythmia History: Atrial fibrillation Associated Symptoms: Shortness of breath - Related Data Home Medications Medication Instructions Recorded Confirmed Last Taken Diltiazem HCl [Diltiazem ER] 240 mg PO DAILY 09/08/17 09/08/17 1 Day Ago ~09/07/17 Folic Acid 1 mg PO DAILY 09/08/17 09/08/17 1 Day Ago ~09/07/17 Furosemide [Lasix] 20 mg PO DAILY 09/08/17 09/08/17 1 Day Ago ~09/07/17 Metoprolol Succinate [Toprol Xl] 25 mg PO DAILY 09/08/17 09/08/17 1 Day Ago ~09/07/17 Rivaroxaban [Xarelto] 20 mg PO DAILY 09/08/17 09/08/17 1 Day Ago ~09/07/17 Tiotropium Br/Olodaterol HCl 2 puff IH QPM 09/08/17 09/08/17 1 Day Ago [Stiolto Respimat Inhal [place]] ~09/07/17 Allergies Allergy/AdvReac Type Severity Reaction Status Date / Time ibuprofen Allergy Unknown RASH Verified 09/08/17 17:20 NSAIDS (Non-Steroidal Allergy Unknown RASH Verified 09/08/17 17:20 Anti-Inflamma Pyrazoles Allergy Unknown PT UNSURE Verified 09/08/17 17:20 OF REACTION Salicylates * Allergy Unknown PT UNSURE Verified 09/08/17 17:20 OF REACTION Travel Screening - Travel/Exposure Within Last 30 Days Have you traveled within the last 30 days?: No - Travel/Exposure Within Last Year Have you traveled outside the [place] in the last year?: No - Additonal Travel Details Have you been exposed to anyone with a communicable illness?: No - Travel Symptoms Symptom Screening: None Review of Systems Constitutional: Denies: Chills, Fever Eyes: Denies: Eye discharge ENT: Denies: Congestion Respiratory: Denies: Cough, Dyspnea Past Medical History - SOCIAL HISTORY Smoking Status: Light tobacco smoker (<10/day) Alcohol Use: None Drug Use: None - RESPIRATORY Hx Respiratory Disorders: Yes Hx COPD: Yes Hx Sleep Apnea: Yes Hx of CPAP: No Comment:: sleep issues - CARDIOVASCULAR Hx Cardio Disorders: Yes Hx Cardiac Cath: Yes Hx Heart Attack: Yes Hx Hypertension: Yes Hx Irregular Heartbeat: Yes (A-Fib) Comment:: high cholesterol - NEURO Hx Neuro Disorders: No - GI Hx GI Disorders: Yes Hx Reflux: Yes - Hx Genitourinary Disorders: Yes Comment:: E.D. - ENDOCRINE Hx Endocrine Disorders: No - MUSCULOSKELETAL Hx Musculoskeletal Disorders: Yes - PSYCH Hx Psych Problems: No - HEMATOLOGY/ONCOLOGY Hx Hematology/Oncology Disorders: No Family Medical History Any Significant Family History?: Yes Hx Cancer: Mother, Brother/Sister *Cancer Comment: Lung Physical Exam - General General Appearance: Alert, Oriented x3, Cooperative, No acute distress - Head Head exam: Atraumatic, Normocephalic, Normal inspection - Eye Eye exam: Normal appearance, PERRL - Neck Neck exam: Normal inspection, Full ROM. negative: Tenderness - Respiratory Respiratory exam: Normal lung sounds bilaterally. negative: Rales, Respiratory distress, Rhonchi, Stridor, Wheezes - Cardiovascular Cardiovascular Exam: Regular rate, Normal rhythm, Normal heart sounds - GI/Abdominal GI/Abdominal exam: Soft, Normal bowel sounds. negative: Tenderness - Extremities Extremities exam: Normal inspection, Full ROM, Normal capillary refill. negative: Pedal edema, Tenderness - Neurological Neurological exam: Alert, Normal gait. negative: Abnormal gait, Motor sensory deficit - Skin Skin exam: negative: Rash Course Vital Signs 09/08/17 17:20 Temperature 97.8 F Pulse Rate 77 Respiratory 18 Rate Blood Pressure 142/93 Pulse Ox 93 L - Reevaluation(s) Reevaluation #1: The patient is doing very well at this time. His BP has been very stable and not elevated during his entire stay in the ER. He has had no CP, SOB, or JANEL and his HR is normal in sinus rhythm. He is to restart his Xarelto and see his PCP next week as planned. 09/08/17 19:50 Reevaluation #2: The patient is doing very well at this time. He is walking with no difficulty and has no CP or SOB. I did again explain the plan to restart his Xarelto and see his PCP next week for recheck. 09/08/17 20:19 Medical Decision Making - Data Complexity MDM Data: Labs Ordered and/or Reviewed, X-Ray Ordered and/or Reviewed, EKG Ordered and/or Reviewed - Lab Data Result diagrams: 09/08/17 17:50 09/08/17 17:50 Lab Results 09/08/17 Range/Units 17:50 WBC 9.2 (4.2-12.2) K/uL RBC 6.25 H (4.40-5.70) M/uL Hgb 17.1 (14.0-18.0) gm/dl Hct 52.4 H (42.0-52.0) % MCV 83.8 (81-97) fl MCH 27.3 (27-33) pg MCHC 32.6 (32-36) g/dl RDW 20.7 H (11.5-14.5) % Plt Count 201 (130-400) K/uL MPV 10.7 H (7.4-10.4) fl Eosinophils % Not Reportable Basophils % Not Reportable - EKG Data -: EKG Interpreted by Me EKG: No Acute Changes, Normal EKG (NSR with no afib.) - Radiology Data Radiology results: Report reviewed (CXR: No obvious abnormalities. Decreased vascular congestion from last week.) Disposition Disposition: Discharge Clinical Impression: Heart palpitations Disposition: Home, Self-Care Condition: (2) Stable Instructions: Heart Palpitations (ED) Additional Instructions: Please continue your regular medicines and see your family doctor for recheck next week. Return to the ER for any worsening issues or problems or for any CP or SOB. Forms: Patient Portal Access Time of Disposition: 20:21 Quality - Quality Measures Quality Measures: N/A - Blood Pressure Screening View Details: Yes Does Patient Have Any of the Following: No Blood Pressure Classification: Pre-Hypertensive BP Reading Systolic Measurement: 128 Diastolic Measurement: 82 Screening for High Blood Pressure: < Pre-Hypertensive BP, F/U Documented > [ G8950] Pre-Hypertensive Follow-up Interventions: Referral to alternative/primary care provider.
[2017-09-08 18:06] LABS: PLATELET ESTIMATE NORMAL (NORMAL)
[2017-09-08 18:10] LABS: BLOOD UREA NITROGEN 23 mg/dL (8-23); CREATININE 1.1 mg/dL (0.7-1.2); EST GLOMERULAR FILTRATION RATE > 60 mL/min
[2017-09-08 18:13] LABS: GLUCOSE,RANDOM 183 mg/dL (74-109)
[2017-09-08 18:16] LABS: CREATINE PHOSPHOKINASE 25 U/L (39-308)
[2017-09-08 18:17] LABS: CKMB 1.2 ng/mL (<6.73)
[2017-09-09] MEDS ORDERED: RIVAROXABAN 20 MG TABLET PO SCH (17:30)
--- NOTE | 2017-09-10 07:34 | RADIOLOGY REPORT ---
EXAM: CHEST, TWO VIEWS HISTORY: DIFFICULTY BREATHING AND HEART PALPITATIONS. HIGH BLOOD PRESSURE. TECHNIQUE: PA and lateral upright views of the chest were obtained. Comparison: 08/30/17. FINDINGS: The heart is normal in size. There is mild prominence of the pulmonary vasculature which has decreased when compared to the prior study. Minor interstitial infiltrates at the lung bases have also decreased from the prior study. There is no pneumothorax or effusion. The bones appear intact. IMPRESSION: MILD PULMONARY VASCULAR CONGESTION AND INTERSTITIAL INFILTRATES WHICH HAVE DECREASED FROM THE PRIOR STUDY. NO NEW ABNORMALITIES. [facility]BER: [id number] [facility]
== END 2017-09-08 20:31 | disposition home or self-care (01) ==
LOC: ER 17:16
DX: I48.91 Unspecified atrial fibrillation (principal); R06.02 Shortness of breath; J44.9 Chronic obstructive pulmonary disease, unspecified; Z99.81 Dependence on supplemental oxygen; I10 Essential (primary) hypertension; F17.210 Nicotine dependence, cigarettes, uncomplicated; Z79.01 Long term (current) use of anticoagulants; I25.2 Old myocardial infarction
CPT/HCPCS: 71046; 80048; 82550; 82553; 83880; 84484; 85027; 93005; 93010; 99284

== ENCOUNTER 2017-11-25 18:22 | Observation (INO) | payer MEDICARE ==
--- NOTE | 2017-11-25 18:49 | Emergency Department Record ---
History of Present Illness - General Chief Complaint: Difficulty Breathing Stated Complaint: JANEL,SWELLING FEET,AFIB Time Seen by Provider: 11/25/17 18:31 Source: Patient Mode of Arrival: Ambulatory Limitations: No limitations - History of Present Illness Initial Comments: 67 yo male presents to ED for evaluation of difficulty in breathing at home as well as possible atrial fibrillation. Patient reports that he is on oxygen 2-3 L NC for an unknown reason other than low oxygen, but was concerned that he may have slipped into atrial fibrillation again. Patient also reports mild lower extremity swelling bilaterally, reports a history of CHF 13 years ago. Patient has been taking his Xarelto regularly as well. Patient denies fevers, chills, or recent illness. MD Complaint: Shortness of breath Onset/Timin -: Week(s) Severity: Moderate Consistency: Constant Improves With: Nothing Worsens With: Nothing Known History Of: Congestive heart failure Associated Symptoms: Edema Treatments Prior to Arrival: None - Related Data Home Oxygen Therapy: Yes Home Oxygen Amount: 2 Liters Allergies Allergy/AdvReac Type Severity Reaction Status Date / Time ibuprofen Allergy Unknown RASH Verified 11/25/17 18:39 NSAIDS (Non-Steroidal Allergy Unknown RASH Verified 11/25/17 18:39 Anti-Inflamma Pyrazoles Allergy Unknown PT UNSURE Verified 11/25/17 18:39 OF REACTION Salicylates * Allergy Unknown PT UNSURE Verified 11/25/17 18:39 OF REACTION Travel Screening - Travel/Exposure Within Last 30 Days Have you traveled within the last 30 days?: No Review of Systems Constitutional: Denies: Chills, Fever, Malaise, Night sweats Eyes: Denies: Eye discharge, Eye pain ENT: Denies: Congestion, Ear pain, Epistaxis Respiratory: Reports: Dyspnea. Denies: Cough Cardiovascular: Reports: Edema. Denies: Chest pain, Dyspnea on exertion, Palpitations, Paroxysmal nocturnal dyspnea Endocrine: Denies: Fatigue, Heat or cold intolerance Gastrointestinal: Denies: Abdominal pain, Nausea, Vomiting Genitourinary: Denies: Incontinence, Retention Musculoskeletal: Denies: Arthralgia, Back pain, Gout, Joint swelling Skin: Denies: Bruising, Change in color Neurological: Denies: Abnormal gait, Confusion, Headache, Tingling Psychiatric: Denies: Anxiety Hematological/Lymphatic: Denies: Anemia, Blood Clots Past Medical History - SOCIAL HISTORY Smoking Status: Light tobacco smoker (<10/day) Alcohol Use: None Drug Use: None - RESPIRATORY Hx Respiratory Disorders: Yes Hx Sleep Apnea: Yes Hx of CPAP: No Comment:: sleep issues - CARDIOVASCULAR Hx Cardio Disorders: Yes Hx Cardiac Cath: Yes Hx Heart Attack: Yes Hx Hypertension: Yes Hx Irregular Heartbeat: Yes (A-Fib) Comment:: high cholesterol - NEURO Hx Neuro Disorders: No - GI Hx GI Disorders: Yes Hx Reflux: Yes - Hx Genitourinary Disorders: Yes Comment:: E.D. - ENDOCRINE Hx Endocrine Disorders: No - MUSCULOSKELETAL Hx Musculoskeletal Disorders: Yes - PSYCH Hx Psych Problems: No - HEMATOLOGY/ONCOLOGY Hx Hematology/Oncology Disorders: No Family Medical History Any Significant Family History?: Yes Hx Cancer: Mother, Brother/Sister *Cancer Comment: Lung Physical Exam - General General Appearance: Alert, Oriented x3, Cooperative, Mild distress Limitations: No limitations - Head Head exam: Atraumatic, Normocephalic, Normal inspection Head exam detail: negative: Abrasion, Contusion, Bailey's sign, General tenderness, Hematoma, Laceration - Eye Eye exam: Normal appearance. negative: Conjunctival injection, Periorbital swelling, Periorbital tenderness, Scleral icterus - ENT Ear exam: negative: Auricular hematoma, Auricular trauma Nasal Exam: negative: Active bleeding, Discharge, Dried blood, Foreign body Mouth exam: negative: Drooling, Laceration, Tongue elevation - Neck Neck exam: Normal inspection. negative: Meningismus, Tenderness - Respiratory Respiratory exam: Normal lung sounds bilaterally. negative: Respiratory distress, Rhonchi, Stridor, Wheezes - Cardiovascular Cardiovascular Exam: Regular rate, Normal rhythm, Normal heart sounds - GI/Abdominal GI/Abdominal exam: Soft. negative: Rebound, Rigid, Tenderness - Rectal Rectal exam: Deferred - exam: Deferred - Extremities Extremities exam: Pedal edema (1+ bilaterally). negative: Calf tenderness, Tenderness - Back Back exam: Denies: CVA tenderness (R), CVA tenderness (L) - Neurological Neurological exam: Alert, Normal gait, Oriented X3 - Psychiatric Psychiatric exam: Normal affect, Normal mood - Skin Skin exam: Normal color. negative: Abrasion Type of lesion: negative: abrasion Course Vital Signs 11/25/17 18:31 Temperature 98.0 F Pulse Rate 71 Respiratory 20 Rate Blood Pressure 127/81 Pulse Ox 82 L - Reevaluation(s) Reevaluation #1: 11/25/17 18:49 Patient's initial oxygenation was taken on RA, not applicable. O2 on 2.5 L 93- 94%. EKG: NSR with PVCs Normal axis, normal intervals Nonspecific ST-T wave changes are present. Reevaluation #2: 11/25/17 19:24 Labs reviewed, BNP 648, labs are otherwise grossly unremarkable for an acute process. Reevaluation #3: 11/25/17 19:46 CXR: Patchy bilateral infiltrates worse from previous Rocephin and Zithromax ordered to infuse, will admit for significant comorbities and hypoxia. Patient was updated on all results thus far, and is agreement with the plan of care as discussed. Reevaluation #4: 11/25/17 20:06 Case was discussed with Krystal Aguilar, will accept admission at this time. Medical Decision Making - Lab Data Result diagrams: 11/25/17 18:50 11/25/17 18:50 Disposition Disposition: Admit Clinical Impression: Hypoxia CAP (community acquired pneumonia) Qualifiers: Laterality: unspecified laterality Qualified Code(s): J18.9 - Pneumonia, unspecified organism Disposition: Still a Patient at [facility] Decision to Admit: Admit from ER Decision to Admit Date: 11/25/17 Decision to Admit Time: 20:07 Condition: (2) Stable Forms: Patient Portal Access Time of Disposition: 20:07 Quality - Quality Measures Quality Measures: N/A - Blood Pressure Screening Does Patient Have Any of the Following: Active Dx of HTN Blood Pressure Classification: Pre-Hypertensive BP Reading Systolic Measurement: 127 Diastolic Measurement: 81 Screening for High Blood Pressure: Patient Exclusion, Hx of HTN [[id number]]
[2017-11-25 18:55] LABS: BASO % 0.1 % (0-6); EOS % 3.4 % (0-6); GRAN % 79.9 % (47-80); HEMATOCRIT 43.8 % (42.0-52.0); HEMOGLOBIN 14.5 gm/dl (14.0-18.0); LYMPH % 9.6 % (16-45); MEAN CELL VOLUME 92.4 fl (81-97); MEAN CORPUSCULAR HEMOGLOBIN 30.6 pg (27-33); MEAN CORPUSCULAR HGB CONC 33.1 g/dl (32-36); MEAN PLATELET VOLUME 10.2 fl (7.4-10.4); PLATELET COUNT 232 K/uL (130-400); RED BLOOD COUNT 4.74 M/uL (4.40-5.70); RED CELL DISTRIBUTION WIDTH 18.7 % (11.5-14.5); WHITE BLOOD COUNT W/O DIFF 9.9 K/uL (4.2-12.2)
[2017-11-25 19:09] LABS: BLOOD UREA NITROGEN 12 mg/dL (8-23)
[2017-11-25 19:10] LABS: CREATININE 0.8 mg/dL (0.7-1.2); EST GLOMERULAR FILTRATION RATE > 60 mL/min; TOTAL PROTEIN 6.8 g/dL (6.6-8.7)
[2017-11-25 19:12] LABS: GLUCOSE,RANDOM 157 mg/dL (74-109)
[2017-11-25 19:15] LABS: ALB/GLOB RATIO 0.9 (1.1-1.8); ALBUMIN 3.3 g/dL (4.0-5.0); ALKALINE PHOSPHATASE 77 U/L (40-129); ALT/SGPT 11 U/L (<41); AST/SGOT 14 U/L (10.0-50.0)
[2017-11-25] MEDS ORDERED: AZITHROMYCIN 500 MG in 0.9 % SODIUM CHLORIDE 250ML 250 ML IVPB ONE (19:47)
[2017-11-25] MEDS ORDERED: CEFTRIAXONE SODIUM 1 GM in 0.9 % SODIUM CHLORIDE 100ML 100 ML IVPB SCH ×2 (20:00→21:17)
[2017-11-25] MEDS ORDERED: ALPRAZOLAM 0.25 MG TABLET PO PRN (21:17)
[2017-11-25] MEDS ORDERED: AZITHROMYCIN 500 MG in 0.9 % SODIUM CHLORIDE 250ML 250 ML IVPB SCH (21:17)
[2017-11-25] MEDS ORDERED: ACETAMINOPHEN 500 MG TABLET PO PRN (21:17)
[2017-11-25] MEDS ORDERED: RIVAROXABAN 20 MG TABLET PO SCH (22:00)
[2017-11-25] MEDS ORDERED: ZOLPIDEM TARTRATE 5 MG TABLET PO SCH (22:14)
[2017-11-25] MEDS: OXYCODONE/APAP 10MG-325MG TABLET PO SCH (22:33)
[2017-11-26] MEDS: OXYCODONE/APAP 10MG-325MG TABLET PO SCH ×3 (06:14→09:45)
[2017-11-26] MEDS ORDERED: PANTOPRAZOLE SODIUM 40 MG TABLET PO SCH (07:00)
--- NOTE | 2017-11-26 07:05 | History & Physical ---
History of Present Illness - Date of Service Date of Service for History & Physical: 11/26/17 - History of Present Illness Admitting Diagnosis: CAP. Hypoxia History of Present Illness: 67yo male with CC dyspnea. He has history of afib on anticoagulation with xarelto, CHF, and home oxygen since hospitalization in August of this year. Patient presented to the ED with some difficulty breathing. He thought he may have gone back in to afib as this felt similar to his first episode about 2 months ago. While in the ED, o2 was 89% on his usual 2L. He was afebrile. BNP mildly elevated at 648.48. Troponin was negative. EKG showed NSR with PVC's. CXR showed b/l infiltrates worse from prior study done in August. He had not received any antibiotic therapy since that time. WBC was wnl range at 9.9. He was started on IV rocephin and azithromycin and admitted for CAP. 11/28/17- Patient states he is feeling much better today. He says he is no longer feeling short of breath. He does admit that he has been having cough for the past few weeks. Has been getting mostly clear phlegm up with the cough. denies fever. Last night he became short of breath as well. He has been on home oxygen for the past 2 months since discharging from [facility]. He has been following with a [employer] but isn't sure why he is still on home oxygen, but has another appointment with them in early November. He was diagnosed with afib and CHF exacerbation in August while admitted to [facility]. He was discharged home on lasix and has been taking every day without missed doses. He denies chest pain, lower extremity swelling, or heart palpitations. Travel Screening - Travel/Exposure Within Last 30 Days Have you traveled within the last 30 days?: No - Travel/Exposure Within Last Year Have you traveled outside the [place] in the last year?: No - Additonal Travel Details Have you been exposed to anyone with a communicable illness?: No - Travel Symptoms Symptom Screening: None Review of Systems Constitutional: Denies: Chills, Fever, Malaise, Night sweats Eyes: Denies: Eye discharge, Eye pain ENT: Denies: Congestion, Ear pain, Epistaxis Respiratory: Reports: Dyspnea. Denies: Cough Cardiovascular: Denies: Chest pain, Dyspnea on exertion, Edema, Palpitations, Paroxysmal nocturnal dyspnea Endocrine: Denies: Fatigue, Heat or cold intolerance Gastrointestinal: Denies: Abdominal pain, Nausea, Vomiting Genitourinary: Denies: Incontinence, Retention Musculoskeletal: Denies: Arthralgia, Back pain, Gout, Joint swelling Skin: Denies: Bruising, Change in color Neurological: Denies: Abnormal gait, Confusion, Headache, Tingling Psychiatric: Denies: Anxiety Hematological/Lymphatic: Denies: Anemia, Blood Clots Past Medical History - SOCIAL HISTORY Smoking Status: Light tobacco smoker (<10/day) Alcohol Use: None Drug Use: None - RESPIRATORY Hx Respiratory Disorders: Yes Hx Sleep Apnea: Yes Hx of CPAP: No Comment:: sleep issues - CARDIOVASCULAR Hx Cardio Disorders: Yes Hx Cardiac Cath: Yes Hx Heart Attack: Yes Hx Hypertension: Yes Hx Irregular Heartbeat: Yes (A-Fib) Comment:: high cholesterol - NEURO Hx Neuro Disorders: No - GI Hx GI Disorders: Yes Hx Reflux: Yes - Hx Genitourinary Disorders: Yes Comment:: E.D. - ENDOCRINE Hx Endocrine Disorders: No - MUSCULOSKELETAL Hx Musculoskeletal Disorders: Yes - PSYCH Hx Psych Problems: No - HEMATOLOGY/ONCOLOGY Hx Hematology/Oncology Disorders: No Family Medical History Any Significant Family History?: Yes Hx Cancer: Mother, Brother/Sister *Cancer Comment: Lung H&P Meds/Allergies - Allergies Allergies: Allergies Allergy/AdvReac Type Severity Reaction Status Date / Time ibuprofen Allergy Unknown RASH Verified 11/25/17 18:39 NSAIDS (Non-Steroidal Allergy Unknown RASH Verified 11/25/17 18:39 Anti-Inflamma Pyrazoles Allergy Unknown PT UNSURE Verified 11/25/17 18:39 OF REACTION Salicylates * Allergy Unknown PT UNSURE Verified 11/25/17 18:39 OF REACTION - Home Medications Previous Rx's Medication Instructions Recorded Azithromycin 250 mg PO DAILY #4 tablet 11/26/17 Cefdinir 300 mg PO BID #20 capsule 11/26/17 - Active Medications Active Medications: Current Medications Acetaminophen (Tylenol 500mg Tab) 1,000 mg PO Q6H PRN PRN Reason: PAIN/TEMP Alprazolam (Xanax) 0.5 mg PO Q8H PRN PRN Reason: ANXIETY Last Admin: 11/25/17 22:30 Dose: 0.5 mg Diltiazem HCl (Cardizem Cd) 240 mg PO DAILY [facility] Folic Acid () 1 mg PO DAILY [facility] Furosemide (Lasix) 20 mg PO DAILY [facility] Azithromycin 500 mg/ Sodium (Chloride) 250 mls @ 250 mls/hr IVPB Q24H [facility] Stop: 11/30/17 21:18 Last Infusion: 11/25/17 23:00 Dose: Infused Ceftriaxone Sodium 1 gm/ (Sodium Chloride) 100 mls @ 100 mls/hr IVPB Q24H [facility] Stop: 12/01/17 20:01 Metoprolol Succinate (Toprol Xl) 100 mg PO DAILY [facility] Non-Formulary Medication (Tiotropium Br/Olodaterol Hcl [Stiolto Respimat Inhal [place]]) 2 puff IH QPM [facility] Oxycodone/Acetaminophen (Percocet 10-325 Mg Tablet) 1 each PO Q6H [facility] Last Admin: 11/26/17 06:14 Dose: Not Given Pantoprazole Sodium (Protonix) 40 mg PO DAILYAC [facility] Last Admin: 11/26/17 06:15 Dose: 40 mg Rivaroxaban (Xarelto) 20 mg PO QHS [facility] Last Admin: 11/25/17 22:30 Dose: 20 mg Simvastatin (Zocor) 20 mg PO QHS [facility] Last Admin: 11/25/17 22:30 Dose: 20 mg Zolpidem Tartrate (Ambien) 10 mg PO QHS [facility] Last Admin: 11/25/17 22:30 Dose: 10 mg Physical Exam - Vital Signs Vital Signs: Vital Signs - Last 24 Hrs Temp Pulse Pulse Pulse Resp BP BP 11/26/17 06:00 97.7 F 65 20 11/26/17 02:00 98.1 F 66 18 11/25/17 22:38 70 20 11/25/17 21:17 98.7 F 68 20 11/25/17 20:39 64 24 121/80 11/25/17 19:23 66 24 122/79 11/25/17 18:31 98.0 F 71 20 127/81 BP Pulse Ox 11/26/17 06:00 129/76 96 11/26/17 02:00 102/39 95 11/25/17 22:38 11/25/17 21:17 132/93 94 L 11/25/17 20:39 92 L 11/25/17 19:23 90 L 11/25/17 18:31 82 L - General General Appearance: Alert, Oriented x3, Cooperative, No acute distress Limitations: No limitations - Head Head exam: Atraumatic, Normocephalic, Normal inspection Head exam detail: negative: Abrasion, Contusion, Bailey's sign, General tenderness, Hematoma, Laceration - Eye Eye exam: Normal appearance. negative: Conjunctival injection, Periorbital swelling, Periorbital tenderness, Scleral icterus - ENT Ear exam: negative: Auricular hematoma, Auricular trauma Nasal Exam: negative: Active bleeding, Discharge, Dried blood, Foreign body Mouth exam: negative: Drooling, Laceration, Tongue elevation - Neck Neck exam: Normal inspection. negative: Meningismus, Tenderness - Respiratory Respiratory exam: Rales (bilateral bases). negative: Accessory muscle use, Respiratory distress, Rhonchi, Stridor, Wheezes - Cardiovascular Cardiovascular Exam: Regular rate, Normal rhythm, Normal heart sounds - GI/Abdominal GI/Abdominal exam: Soft. negative: Rebound, Rigid, Tenderness - Rectal Rectal exam: Deferred - exam: Deferred - Extremities Extremities exam: negative: Calf tenderness, Pedal edema, Tenderness - Back Back exam: Denies: CVA tenderness (R), CVA tenderness (L) - Neurological Neurological exam: Alert, Normal gait, Oriented X3 - Psychiatric Psychiatric exam: Normal affect, Normal mood - Skin Skin exam: Normal color. negative: Abrasion Type of lesion: negative: abrasion Results - Labs Result Diagrams: 11/25/17 18:50 11/25/17 18:50 Labs Last 24 Hours: Laboratory Results - last 24 hr 11/25/17 11/25/17 18:50 18:50 WBC 9.9 RBC 4.74 Hgb 14.5 Hct 43.8 MCV 92.4 MCH 30.6 MCHC 33.1 RDW 18.7 H Plt Count 232 MPV 10.2 Gran % 79.9 Lymphocytes % 9.6 L Monocytes % 7.0 Eosinophils % 3.4 Basophils % 0.1 Sodium 139 Potassium 4.2 Chloride 94 L Carbon Dioxide 27.0 Anion Gap 18.0 H BUN 12 Creatinine 0.8 Estimated GFR > 60 Random Glucose 157 H Calcium 8.7 L Total Bilirubin 0.30 AST 14 ALT 11 Alkaline Phosphatase 77 Troponin T < 0.010 NT-Pro-B Natriuret Pep 648.60 H Total Protein 6.8 Albumin 3.3 L Globulin 3.5 Albumin/Globulin Ratio 0.9 L VTE H&P Assessment - Risk for VTE Risk for VTE: Yes Risk Level: High Risk Assessment Date: 11/26/17 Risk Assessment Time: 08:00 VTE Orders Placed or Will Be Placed: Yes Plan - Detailed Diagnosis and Plan (1) CAP (community acquired pneumonia) Status: Acute Qualifiers: Laterality: unspecified laterality Qualified Code(s): J18.9 - Pneumonia, unspecified organism Base Code: J18.9 - PNEUMONIA, UNSPECIFIED ORGANISM Comment: 11/26/17- improving. CXR on 11/25/17 showed worsening of the b/l infiltrates from previous cxr in august. had not received abx therapy in August. WBC count wnl and remains afebrile today. received one dose of IV rocephin and azithro while in the ED. He is currently back to his baseline on home oxygen. -will plan to discharge home today. -will transition to cefdinir 300mg po bid for 10 days and azithromycin 250mg po daily for 4 more days -He has follow up with his pcp on Sunday previously scheduled and has follow up with pulmonology in November. -discussed reasons to return to ED including new or worsening symptoms. (2) Hypoxia Status: Acute Base Code: R09.02 - HYPOXEMIA Comment: 11/26/17- patient on 2L o2 at home since August. Patient denies h/o copd and has been following with pulmonology for this. O2 was 89% on 2L upon arrival improved to 93% today. suspect pna as cause for dyspnea. Does not appear to be fluid overloaded. has been taking his lasix and xarelto without missed doses. -will continue treatment for pna and continue 2L O2 via NC (3) Full code status Status: Acute Base Code: Z78.9 - OTHER SPECIFIED HEALTH STATUS Comment: 11/26- patient is full code (4) DVT prophylaxis Status: Acute Base Code: [id number] - Comment: 11/26/17- patient is high risk with p. afib. -will continue xarelto 20mg po daily
--- NOTE | 2017-11-26 09:17 | Discharge Summary ---
Providers Discharge Summary Date: 11/26/17 Date of admission: 11/25/17 21:11 Expected Date of Discharge: 11/26/17 Attending physician: BARRETT GELLER Primary care physician: SAEID KEVIN D.O. Physical Exam - Vital Signs Vital Signs: Vital Signs - Last 24 Hrs Temp Pulse Pulse Pulse Resp BP BP 11/26/17 06:00 97.7 F 65 20 11/26/17 02:00 98.1 F 66 18 11/25/17 22:38 70 20 11/25/17 21:17 98.7 F 68 20 11/25/17 20:39 64 24 121/80 11/25/17 19:23 66 24 122/79 11/25/17 18:31 98.0 F 71 20 127/81 BP Pulse Ox 11/26/17 06:00 129/76 96 11/26/17 02:00 102/39 95 11/25/17 22:38 11/25/17 21:17 132/93 94 L 11/25/17 20:39 92 L 11/25/17 19:23 90 L 11/25/17 18:31 82 L - General General Appearance: Alert, Oriented x3, Cooperative, No acute distress Limitations: No limitations - Head Head exam: Atraumatic, Normocephalic, Normal inspection Head exam detail: negative: Abrasion, Contusion, Bailey's sign, General tenderness, Hematoma, Laceration - Eye Eye exam: Normal appearance. negative: Conjunctival injection, Periorbital swelling, Periorbital tenderness, Scleral icterus - ENT Ear exam: negative: Auricular hematoma, Auricular trauma Nasal Exam: negative: Active bleeding, Discharge, Dried blood, Foreign body Mouth exam: negative: Drooling, Laceration, Tongue elevation - Neck Neck exam: Normal inspection. negative: Meningismus, Tenderness - Respiratory Respiratory exam: Rales (bilateral bases). negative: Accessory muscle use, Respiratory distress, Rhonchi, Stridor, Wheezes - Cardiovascular Cardiovascular Exam: Regular rate, Normal rhythm, Normal heart sounds - GI/Abdominal GI/Abdominal exam: Soft. negative: Rebound, Rigid, Tenderness - Rectal Rectal exam: Deferred - exam: Deferred - Extremities Extremities exam: negative: Calf tenderness, Pedal edema, Tenderness - Back Back exam: Denies: CVA tenderness (R), CVA tenderness (L) - Neurological Neurological exam: Alert, Normal gait, Oriented X3 - Psychiatric Psychiatric exam: Normal affect, Normal mood - Skin Skin exam: Normal color. negative: Abrasion Type of lesion: negative: abrasion Hospitalization - Hospitalization Admission Diagnosis: CAP. Hypoxia - Problem List/Discharge Diagnosis (1) CAP (community acquired pneumonia) Status: Acute Discharge Diagnosis: Laterality: unspecified laterality Qualified Code(s): J18.9 - Pneumonia, unspecified organism Base Code: J18.9 - PNEUMONIA, UNSPECIFIED ORGANISM Comment: 11/26/17- improving. CXR on 11/25/17 showed worsening of the b/l infiltrates from previous cxr in august. had not received abx therapy in August. WBC count wnl and remains afebrile today. received one dose of IV rocephin and azithro while in the ED. He is currently back to his baseline on home oxygen. -will plan to discharge home today. -will transition to cefdinir 300mg po bid for 10 days and azithromycin 250mg po daily for 4 more days -He has follow up with his pcp on Sunday previously scheduled and has follow up with pulmonology in November. -discussed reasons to return to ED including new or worsening symptoms. (2) Hypoxia Status: Acute Base Code: R09.02 - HYPOXEMIA Comment: 11/26/17- patient on 2L o2 at home since August. Patient denies h/o copd and has been following with pulmonology for this. O2 was 89% on 2L upon arrival improved to 93% today. suspect pna as cause for dyspnea. Does not appear to be fluid overloaded. has been taking his lasix and xarelto without missed doses. -will continue treatment for pna and continue 2L O2 via NC (3) DVT prophylaxis Status: Acute Base Code: [id number] - Comment: 11/26/17- patient is high risk with p. afib. -will continue xarelto 20mg po daily (4) Full code status Status: Acute Base Code: Z78.9 - OTHER SPECIFIED HEALTH STATUS Comment: 11/26- patient is full code - Hospitalization Course Disposition: Home, Self-Care Hospital Course: 67yo male with CC dyspnea. He has history of afib on anticoagulation with xarelto, CHF, and home oxygen since hospitalization in August of this year. Patient presented to the ED with some difficulty breathing. He thought he may have gone back in to afib as this felt similar to his first episode about 2 months ago. While in the ED, o2 was 89% on his usual 2L. He was afebrile. BNP mildly elevated at 648.48. Troponin was negative. EKG showed NSR with PVC's. CXR showed b/l infiltrates worse from prior study done in August. He had not received any antibiotic therapy since that time. WBC was wnl range at 9.9. He was started on IV rocephin and azithromycin and admitted for CAP. 11/28/17- Patient states he is feeling much better today. He says he is no longer feeling short of breath. He does admit that he has been having cough for the past few weeks. Has been getting mostly clear phlegm up with the cough. denies fever. Last night he became short of breath as well. He has been on home oxygen for the past 2 months since discharging from [facility]. He has been following with a family readiness support assistant but isn't sure why he is still on home oxygen, but has another appointment with them in early November. He was diagnosed with afib and CHF exacerbation in August while admitted to [facility]. He was discharged home on lasix and has been taking every day without missed doses. He denies chest pain, lower extremity swelling, or heart palpitations. Procedures: Imaging and X-Rays 11/25/17 18:31 CHEST 2 VIEWS [RAD] Stat Cardiology Procedures 11/25/17 18:44 EKG NOW 11/25/17 21:17 Cart Attendant .Continuous Abnormal Labs: Abnormal Lab Results 11/25/17 11/25/17 Range/Units 18:50 18:50 RDW 18.7 H (11.5-14.5) % Lymphocytes % 9.6 L (16-45) % Chloride 94 L (98-107) mmol/L Anion Gap 18.0 H (7-16) Random Glucose 157 H (74-109) mg/dL Calcium 8.7 L (8.8-10.2) mg/dL NT-Pro-B Natriuret Pep 648.60 H (<125) pg/mL Albumin 3.3 L (4.0-5.0) g/dL Albumin/Globulin Ratio 0.9 L (1.1-1.8) Condition at Discharge: (2) Stable Discharge Medications - Discharge Medications Prescriptions: Azithromycin 250 mg PO DAILY #4 tablet Cefdinir 300 mg PO BID #20 capsule Home Medications: Ambulatory Orders Alprazolam [Xanax] 0.5 mg PO Q8H PRN 02/09/17 [Last Taken 11/24/17] Omeprazole [Prilosec] 20 mg PO DAILY 02/09/17 [Last Taken 11/24/17] Pravastatin Sodium [Pravachol] 40 mg PO QPM 02/09/17 [Last Taken 11/24/17] Zolpidem Tartrate [Ambien] 10 mg PO QHS 02/09/17 [Last Taken 11/24/17] Methotrexate Sodium [Trexall] 2.5 mg PO WEEKLY 08/26/17 [Last Taken 11/24/17] Oxycodone HCl/Acetaminophen [Percocet 10mg/325mg] 10 mg PO Q6H 08/26/17 [Last Taken 11/24/17] Diltiazem HCl [Diltiazem 24Hr ER] 240 mg PO DAILY 09/08/17 [Last Taken 11/24/17] Folic Acid 1 mg PO DAILY 09/08/17 [Last Taken 11/24/17] Furosemide [Lasix] 20 mg PO DAILY 09/08/17 [Last Taken 11/24/17] Metoprolol Succinate [Toprol Xl] 100 mg PO DAILY 09/08/17 [Last Taken 11/24/17] Rivaroxaban [Xarelto] 20 mg PO DAILY 09/08/17 [Last Taken 11/24/17] Tiotropium Br/Olodaterol HCl [Stiolto Respimat Inhal [place]] 2 puff IH QPM [Last Taken 11/24/17] Azithromycin 250 mg PO DAILY #4 tablet 11/26/17 [Last Taken Unknown] Cefdinir 300 mg PO BID #20 capsule 11/26/17 [Last Taken Unknown] Discharge Plan - Discharge Instructions Activity at Discharge: Resume Usual Activities As Tolerated Diet at Discharge: Low Salt Diet Instructions: Community Acquired Pneumonia (DC), Hypoxia (GEN) Additional Instructions: Follow up with Dr. Kevin as scheduled this Sunday Follow up with Dr. Castro and pulmonology as scheduled Continue your antibiotics Take your cefidinir 300mg by mouth twice daily for 10 days. Your next dose will be due tonight. Take azithromycin 250mg by mouth once daily for 4 more days. Your next dose will be due tonight. Continue your home oxygen 2-3L as prescribed. Please call with any questions or concerns Return to ED for any new or worsening symptoms Quality Measures - Quality Measures Quality Measures: Atrial Fibrillation & Atrial Flutter: Chronic Anticoagulation Therapy, Advance Directives, Documentation of Current Medications in Medical Record, Elder Maltreatment Screen and Follow-Up Plan, Screening for High Blood Pressure and F/U Documented - Current Medications Quality Measure: Measure #130: Documentation of Current Medications Documentation of Current Medications: <Current Medications Documented/Reviewed> [G0214] - Blood Pressure Screening Quality Measure: Screening for High Blood Pressure and Follow-Up Documented Does Patient Have Any of the Following: Active Dx of HTN Blood Pressure Classification: Pre-Hypertensive BP Reading Systolic Measurement: 127 Diastolic Measurement: 81 Screening for High Blood Pressure: Patient Exclusion, Hx of HTN [G9744] - Atrial Fibrillation and Atrial Flutter Quality Measure: Atrial Fibrillation & Atrial Flutter: Chronic Anticoagulation Therapy Does Patient Have Any of the Following: No CHADS2 Risk Stratification: Hypertension Risk Stratification Summary: No risk factors or only one moderate risk factor exists. [G8970] Anticoagulation Therapy: Patient Not Eligible [G8970] - Advance Directives Quality Measure: Measure #47: Care Plan Advance Directives Established: No Advance Directives Information Provided To Patient: Declined Advance Directives on File: No Living Will: No Power of Patcher: No Advance Care Planning: <Care Plan/Decision Maker Not Decided; Discussed & Documented> [7217T] - Elder Abuse Suspicion Index Screening: Elder Abuse Suspicion Index Screening Rely on people for bathing, dressing, shopping, banking, etc: No Prevented from getting food, clothes, medication, etc: No Made to feel shamed or threatened by someone: No Forced to sign papers or use money against will: No Feel afraid, touched in ways not wanted or hurt physically: No Poor eye contact, withdrawn, malnourished, cuts or bruises: No Screening Result: Negative result EASI Reference Information: Osbaldo STRINGER, Ramon C, Negrito D, Vaishali Kirkland.Development and validation of a tool to assist physicians identification of elder abuse: The Elder Abuse Suspicion Index (EASI ). Journal of Elder Abuse and Neglect, 2008; 20 (3): 276-300. - Elder Maltreatment Screen Quality Measures: Elder Maltreatment Screen and Follow-Up Plan Elder Maltreatment Screen: <Negative, No Follow-Up Plan Required> [G8734]
[2017-11-26] MEDS ORDERED: DILTIAZEM 240 MG CAP CR PO SCH (10:00)
[2017-11-26] MEDS ORDERED: FUROSEMIDE 20 MG TABLET PO SCH (10:00)
[2017-11-26] MEDS ORDERED: FOLIC ACID 1 MG TABLET PO SCH (10:00)
[2017-11-26] MEDS ORDERED: METOPROLOL SUCC 25 MG TAB.ER PO SCH (10:00)
[2017-11-26] MEDS ORDERED: CEFTRIAXONE SODIUM 1 GM in 0.9 % SODIUM CHLORIDE 100ML 100 ML IVPB SCH (20:00)
[2017-11-26] MEDS ORDERED: AZITHROMYCIN 500 MG in 0.9 % SODIUM CHLORIDE 250ML 250 ML IVPB SCH (21:00)
[2017-11-26] MEDS ORDERED: SIMVASTATIN 20 MG TABLET PO SCH (22:00)
[2017-11-26] MEDS ORDERED: ANORO (UMECLIDINIUM & VILANTEROL) 62.5MCG/25MCG INH IH SCH (22:00)
--- NOTE | 2017-11-27 07:22 | RADIOLOGY REPORT ---
EXAM: CHEST HISTORY: DIFFICULTY BREATHING. CHEST PAIN. TECHNIQUE: Two views of the chest were obtained. Comparison: 09/08/17. FINDINGS: Bilateral lung infiltrates appear worse than on the patient's previous study. The heart is borderline enlarged. No mediastinal mass. IMPRESSION: PATCHY BILATERAL LUNG INFILTRATES APPEAR WORSE THAN THE PREVIOUS STUDY. JOB NUMBER: [id number] MTDD
== END 2017-11-26 10:30 | disposition home or self-care (01) ==
LOC: ER 18:22 → MEDSURG 21:11
PROVIDERS: ADMIT Internal Medicine; ATTEND Internal Medicine
DX: J18.9 Pneumonia, unspecified organism (principal); R09.02 Hypoxemia; I48.91 Unspecified atrial fibrillation; Z79.01 Long term (current) use of anticoagulants; I50.9 Heart failure, unspecified; I10 Essential (primary) hypertension; E78.00 Pure hypercholesterolemia, unspecified; I25.2 Old myocardial infarction; F17.210 Nicotine dependence, cigarettes, uncomplicated; M06.9 Rheumatoid arthritis, unspecified; G47.30 Sleep apnea, unspecified
CPT/HCPCS: 85025; 80053; 84484; 83880; 71046; 93005; 93010; G0378 ×2; J3490; 96374; 99220; 99285; J0456; J7050

== ENCOUNTER 2018-02-08 07:40 | Day surgery (SDC) | payer MEDICARE ==
--- NOTE | 2018-02-11 12:50 | Operative Note ---
DATE OF SURGERY: 02/08/2018 SURGEON: Hamida Zimmerman MD OPERATION: 1. ESOPHAGOGASTRODUODENOSCOPY. 2. COLONOSCOPY. INDICATIONS: This is a 67-year-old male with history of gastroesophageal reflux disease and average risk for colorectal cancer who presented for both esophagogastroduodenoscopy and screening colonoscopy. POSTOPERATIVE DIAGNOSES: 1. Normal esophagus and duodenum with erosive gastritis, status post biopsies. 2. One 1.5 cm proximal ascending colon polyp that was removed by cold snare and ink and hemoclip application x2 with 13 adjacent 6-8 mm sessile polyps that were removed by snare polypectomy. 3. A 6 mm sessile sigmoid colon polyp that was removed by snare polypectomy. 4. Grade 1 internal hemorrhoids. ANESTHESIA: Sedation is per Anesthesia. Pulse oximetry was monitored throughout the procedure to maintain O2 saturation of 90% or greater. Supplemental oxygen was administered via nasal cannula. Cardiac and vital signs were monitored throughout the duration of the procedure, and they were stable. The procedures of esophagogastroduodenoscopy and colonoscopy and risks and benefits of the procedures, including the risk of bleeding and perforation, among others, were explained to the patient who voiced understanding and agreed to have the procedures done. Physical examination was performed, and the patient was found stable for sedation. PROCEDURE: The patient was placed in the left lateral position. Sedation was initiated. A plastic bite block was inserted into the oral cavity. The Olympus [id number] gastroscope was introduced into the oral cavity and advanced to the proximal esophagus without difficulty. The esophageal mucosa was carefully examined upon introduction of the gastroscope. The proximal and mid and distal esophageal mucosa appeared normal. The gastroscope was then advanced into the stomach, and surveillance of the stomach revealed diffuse erythema with erosions involving the gastric body and antrum but no ulcers were noted. The gastroscope was then advanced to the descending duodenum without difficulty. The duodenal bulb and descending duodenum appeared normal. The gastroscope was then withdrawn into the stomach and retroflexion was performed. There were no other lesions noted. The gastroscope was then withdrawn while carefully examining the gastric and esophageal mucosa. No other lesions noted. Multiple gastric biopsies were obtained. The patient remained with stable vital signs and was repositioned for colonoscopy. A digital rectal exam was performed and showed some mild external hemorrhoids with no palpable rectal masses. An Olympus [id number]-180AL colonoscope was then inserted into the rectum under direct visualization. It was advanced to the cecum without difficulty. The ileocecal valve and appendiceal orifice were identified and photographed. The colonic mucosa was carefully examined upon introduction of the colonoscope. There were multiple polyps noted in the ascending colon. The bowel preparation was good. Upon withdrawal of the colonoscope, the colonic mucosal surfaces were carefully examined and in the proximal ascending colon was a 1.5 cm sessile polypoid lesion that was noted and was removed by snare cautery with 2 hemoclips application, and the site was marked with ink. There were 13 adjacent 6-8 mm sessile polyps that were noted and they were removed by cold snare. The rest of the ascending colon, transverse colon, and descending colon mucosa appeared normal. In the sigmoid colon was a 6 mm sessile polyp that was noted and was removed by cold snare. The rest of the sigmoid colon and rectum were normal. Retroflexion was performed in the rectum, and small internal hemorrhoids were noted. The colonoscope was then withdrawn and the procedure was terminated. The patient tolerated the procedure well without any immediate complications. The patient remained with stable vital signs and was transferred to the recovery room. RECOMMENDATIONS: 1. We will follow up on the histology of the polyps. 2. He is to avoid any aspirin or aspirin-like medications for 2 weeks. 3. He should have repeat colonoscopy for surveillance in about 3 years. Thank you for allowing me to participate in the care of your patient. CC: Felix VELOZ
== END 2018-02-08 10:05 | disposition home or self-care (01) ==
LOC: HOP 07:40
PROVIDERS: ATTEND Internal Medicine Gastroenterology
DX: Z12.11 Encounter for screening for malignant neoplasm of colon (principal); D12.2 Benign neoplasm of ascending colon; D12.5 Benign neoplasm of sigmoid colon; K64.0 First degree hemorrhoids; K29.70 Gastritis, unspecified, without bleeding; K21.9 Gastro-esophageal reflux disease without esophagitis; Z79.01 Long term (current) use of anticoagulants; I10 Essential (primary) hypertension; E78.00 Pure hypercholesterolemia, unspecified; M06.9 Rheumatoid arthritis, unspecified

== ENCOUNTER 2018-03-22 15:57 | Emergency (ER) | payer MEDICARE ==
[2018-03-22 16:43] LABS: HEMATOCRIT 45.5 % (42.0-52.0); HEMOGLOBIN 13.9 gm/dl (14.0-18.0); MEAN CELL VOLUME 89.6 fl (81-97); MEAN CORPUSCULAR HGB CONC 30.5 g/dl (32-36); MEAN PLATELET VOLUME 10.3 fl (7.4-10.4); PLATELET COUNT 210 K/uL (130-400); RED BLOOD COUNT 5.08 M/uL (4.40-5.70); RED CELL DISTRIBUTION WIDTH 20.5 % (11.5-14.5); WHITE BLOOD COUNT W/O DIFF 10.5 K/uL (4.2-12.2)
[2018-03-22 16:50] LABS: MEAN CORPUSCULAR HEMOGLOBIN 27.3 pg (27-33)
[2018-03-22 16:59] LABS: BLOOD UREA NITROGEN 12 mg/dL (8-23); CREATININE 0.9 mg/dL (0.7-1.2); EST GLOMERULAR FILTRATION RATE > 60 mL/min
[2018-03-22 17:00] LABS: TOTAL PROTEIN 7.4 g/dL (6.6-8.7)
[2018-03-22 17:02] LABS: GLUCOSE,RANDOM 79 mg/dL (74-109)
[2018-03-22 17:04] LABS: ALB/GLOB RATIO 0.9 (1.1-1.8); ALBUMIN 3.5 g/dL (4.0-5.0); ALKALINE PHOSPHATASE 86 U/L (40-129); ALT/SGPT 19 U/L (<41); AST/SGOT 17 U/L (10.0-50.0)
[2018-03-22] MEDS ORDERED: FUROSEMIDE IV 20MG/2ML VIAL IVP ONE (17:37)
--- NOTE | 2018-03-22 18:45 | Emergency Department Record ---
History of Present Illness - General Chief complaint: Weakness Stated complaint: FELLS STRANGE AND HAS A-FIB Time Seen by Provider: 03/22/18 16:19 Source: Patient, Family Mode of Arrival: Ambulatory Limitations: No limitations - History of Present Illness Initial comments: pt feels weak and sob. his feet are swelling and eyes are puffy. he stopped drinking 7 mos ago but he had 1 drink last week. MD Complaint: Generalized weakness Onset/Timin -: Week(s) Location: Generalized Severity: Mild Consistency: Constant Improves with: None Worsens with: Exertion Associated Symptoms: Confusion, Loss of appetite, Shortness of breath - Liu Coma Scale Eye Response: (4) Open spontaneously Motor Response: (6) Obeys commands Verbal Response: (5) Oriented [place] Total: 15 - Symptoms of Stroke Symptoms of stroke: Muscle Weakness - Related Data Home Medications Medication Instructions Recorded Confirmed Last Taken Rosuvastatin Calcium [Crestor] 20 mg PO QHS 03/22/18 03/22/18 03/21/18 Tadalafil [Cialis] 5 mg PO QHS 03/22/18 03/22/18 03/21/18 Trazodone HCl 150 mg PO QHS 03/22/18 03/22/18 03/21/18 Allergies Allergy/AdvReac Type Severity Reaction Status Date / Time ibuprofen Allergy Unknown RASH Verified 03/22/18 16:19 NSAIDS (Non-Steroidal Allergy Unknown RASH Verified 03/22/18 16:19 Anti-Inflamma Pyrazoles Allergy Unknown PT UNSURE Verified 03/22/18 16:19 OF REACTION Salicylates * Allergy Unknown PT UNSURE Verified 03/22/18 16:19 OF REACTION Travel Screening - Travel/Exposure Within Last 30 Days Have you traveled within the last 30 days?: No - Travel/Exposure Within Last Year Have you traveled outside the [place] in the last year?: No - Additonal Travel Details Have you been exposed to anyone with a communicable illness?: No - Travel Symptoms Symptom Screening: None Review of Systems Reviewed: No additional complaints except as noted below Constitutional: Reports: As per HPI. Denies: Chills, Fever, Malaise, Night sweats, Weakness, Weight change Eyes: Reports: As per HPI. Denies: Eye discharge, Eye pain, Photophobia, Vision change ENT: Reports: As per HPI. Denies: Congestion, Dental pain, Ear pain, Epistaxis , Hearing loss, Throat pain Respiratory: Reports: As per HPI. Denies: Cough, Dyspnea, Hemoptysis, Stridor, Wheezes Cardiovascular: Reports: As per HPI. Denies: Arrhythmia, Chest pain, Dyspnea on exertion, Edema, Murmurs, Orthopnea, Palpitations, Paroxysmal nocturnal dyspnea, Rheumatic Fever, Syncope Endocrine: Reports: As per HPI. Denies: Fatigue, Heat or cold intolerance, Polydipsia, Polyuria Gastrointestinal: Reports: As per HPI. Denies: Abdominal pain, Constipation, Diarrhea, Hematemesis, Hematochezia, Melena, Nausea, Vomiting Genitourinary: Reports: As per HPI. Denies: Dysuria, Frequency, Hematuria, Incontinence, Retention, Testicular pain, Testicular mass, Urgency Musculoskeletal: Reports: As per HPI. Denies: Arthralgia, Back pain, Gout, Joint swelling, Myalgia, Neck pain Skin: Reports: As per HPI. Denies: Bruising, Change in color, Change in hair/ nails, Lesions, Pruritus, Rash Neurological: Reports: As per HPI. Denies: Abnormal gait, Confusion, Headache, Numbness, Paresthesias, Seizure, Tingling, Tremors, Vertigo, Weakness Psychiatric: Reports: As per HPI. Denies: Anxiety, Auditory hallucinations, Depression, Homicidal thoughts, Suicidal thoughts, Visual hallucinations Hematological/Lymphatic: Reports: As per HPI. Denies: Anemia, Blood Clots, Easy bleeding, Easy bruising, Swollen glands Past Medical History - SOCIAL HISTORY Smoking Status: Light tobacco smoker (<10/day) Alcohol Use: None Alcohol Use Comment: 1 shot 8 days ago. Drug Use: None - RESPIRATORY Hx Respiratory Disorders: Yes Hx Sleep Apnea: Yes Comment:: sleep issues - CARDIOVASCULAR Hx Cardio Disorders: Yes Hx Cardiac Cath: Yes Hx CHF: Yes Hx Irregular Heartbeat: Yes (A-Fib) Comment:: high cholesterol - NEURO Hx Neuro Disorders: No - GI Hx GI Disorders: Yes Hx Reflux: Yes Comment:: dyshagia - Hx Genitourinary Disorders: Yes Hx Prostate Problems: Yes (enlarged) Comment:: E.D. - ENDOCRINE Hx Endocrine Disorders: No - MUSCULOSKELETAL Hx Musculoskeletal Disorders: Yes Comment:: RA - PSYCH Hx Psych Problems: No - HEMATOLOGY/ONCOLOGY Hx Hematology/Oncology Disorders: No Hx Bruising: Yes (easy due to Xarelto) Family Medical History Any Significant Family History?: No Hx Cancer: Mother, Brother/Sister *Cancer Comment: Lung Hx Heart Disease: Mother, Brother/Sister Hx Resp Disorders: Mother, Brother/Sister *Resp Comment: lung cancer Physical Exam - General General Appearance: Alert, Oriented x3, Cooperative, Mild distress - Head Head exam: Normal inspection - Eye Eye exam: Normal appearance, PERRL, EOMI Pupils: Normal accommodation - ENT ENT exam: Normal exam, Mucous membranes moist, Normal external ear exam, Normal orophraynx Ear exam: Normal external inspection. negative: External canal tenderness Nasal Exam: Normal inspection. negative: Discharge, Sinus tenderness Mouth exam: Normal external inspection, Tongue normal Teeth exam: Normal inspection. negative: Dental caries Throat exam: Normal inspection. negative: Tonsillar erythema, Tonsillar exudate - Neck Neck exam: Normal inspection, Full ROM. negative: Tenderness - Respiratory Respiratory exam: Rales, Respiratory distress - Cardiovascular Cardiovascular Exam: Regular rate, Normal rhythm, Normal heart sounds - GI/Abdominal GI/Abdominal exam: Soft, Normal bowel sounds. negative: Tenderness - Rectal Rectal exam: Deferred - exam: Deferred - Extremities Extremities exam: Normal inspection, Full ROM, Normal capillary refill, Pedal edema. negative: Tenderness - Back Back exam: Reports: Normal inspection, Full ROM. Denies: Muscle spasm, Rash noted, Tenderness - Neurological Neurological exam: Alert, CN II-XII intact, Normal gait, Oriented X3 - Psychiatric Psychiatric exam: Normal affect, Normal mood - Skin Skin exam: Dry, Intact, Normal color, Warm Course Vital Signs 03/22/18 03/22/18 03/22/18 16:09 16:30 17:12 Temperature 97.6 F Pulse Rate 76 Pulse Rate [ 64 60 Pulse Ox Probe] Respiratory 20 16 16 Rate Blood Pressure 132/91 Blood Pressure 130/81 127/83 [Right Arm] Pulse Ox 92 L 92 L 93 L - Reevaluation(s) Reevaluation #1: 03/22/18 19:01 pt feels better Medical Decision Making - Lab Data Result diagrams: 03/22/18 16:30 03/22/18 16:30 Lab Results 03/22/18 03/22/18 Range/Units 16:30 16:30 WBC 10.5 (4.2-12.2) K/uL RBC 5.08 (4.40-5.70) M/uL Hgb 13.9 L (14.0-18.0) gm/dl Hct 45.5 (42.0-52.0) % MCV 89.6 (81-97) fl MCH 27.3 (27-33) pg MCHC 30.5 L (32-36) g/dl RDW 20.5 H (11.5-14.5) % Plt Count 210 (130-400) K/uL MPV 10.3 (7.4-10.4) fl Neutrophils % 82.0 H (47-80) % Band Neutrophils % 2.0 (0-5) % Eosinophils % Not Reportable Basophils % Not Reportable Lymphocytes 8.0 L (16-45) % Monocytes 7.0 (0-9) % Basophils 0.0 (0-6) % Eosinophil Count 1.0 (0-6) % Sodium 136 (136-145) mmol/L Potassium 4.0 (3.4-4.5) mmol/L Chloride 93 L (98-107) mmol/L Carbon Dioxide 33.0 H (22-29) mmol/L Anion Gap 10.0 (7-16) BUN 12 (8-23) mg/dL Creatinine 0.9 (0.7-1.2) mg/dL Estimated GFR > 60 mL/min Random Glucose 79 (74-109) mg/dL Calcium 9.0 (8.8-10.2) mg/dL Total Bilirubin 0.40 (0.2-1.0) mg/dL AST 17 (10.0-50.0) U/L ALT 19 (<41) U/L Alkaline Phosphatase 86 (40-129) U/L Troponin T < 0.010 (0-0.010) ng/mL NT-Pro-B Natriuret Pep 1224.00 H (<125) pg/mL Total Protein 7.4 (6.6-8.7) g/dL Albumin 3.5 L (4.0-5.0) g/dL Globulin 3.9 (1.4-4.8) gm/dL Albumin/Globulin Ratio 0.9 L (1.1-1.8) Disposition Disposition: Discharge Clinical Impression: SOB (shortness of breath) CHF (congestive heart failure) Qualifiers: Heart failure type: unspecified Heart failure chronicity: acute Qualified Code( s): I50.9 - Heart failure, unspecified Disposition: Home, Self-Care Condition: (1) Good Instructions: Pulmonary Edema (ED), Leg Edema (ED), Low-Sodium Diet (ED), Heart Failure (ED) Additional Instructions: follow up with family doctor. return sooner if worse. take an extra lasix in the morning. Forms: Patient Portal Access Quality - Quality Measures Quality Measures: N/A - Blood Pressure Screening Does Patient Have Any of the Following: No Blood Pressure Classification: Hypertensive Reading Systolic Measurement: 132 Diastolic Measurement: 91 Screening for High Blood Pressure: < Pre-Hypertensive BP, F/U Documented > [ G8950] Pre-Hypertensive Follow-up Interventions: Follow-up with rescreen every year.
--- NOTE | 2018-03-25 08:55 | RADIOLOGY REPORT ---
EXAM: CHEST HISTORY: PATIENT HAS SHORTNESS OF BREATH. TECHNIQUE: Two views of the chest are provided along with the comparison study dated 11/25/17 and 07/25/17. FINDINGS: The cardiomediastinal silhouette is within normal limits for size and contour. The magda appear unremarkable. There is diffuse interstitial prominence identified. It is noted that this diffuse interstitial prominence is noted on the previous examinations as well. I suspect the patient may have pulmonary fibrosis. Clinical correlation is recommended. There is no new focal consolidation or pleural effusion. No pneumothorax is noted. IMPRESSION: DIFFUSE INTERSTITIAL PROMINENCE IS NOTED BILATERALLY WHICH MAY REFLECT PULMONARY FIBROSIS. NO OBVIOUS NEW FOCAL CONSOLIDATION OR PLEURAL EFFUSION IS NOTED. FOLLOW-UP PA AND LATERAL VIEWS OF THE CHEST CAN BE OBTAINED UNTIL RESOLUTION OF FINDINGS. JOB NUMBER: [id number] [facility]
--- NOTE | 2018-03-25 09:06 | CT SCAN REPORT ---
EXAM: CT SCAN OF THE HEAD HISTORY: PATIENT HAS DIZZINESS. TECHNIQUE: Serial axial CT scan of the head was performed at 2.5 mm intervals from the base of the skull to the apex without the use of intravenous contrast. Sagittal and coronal reconstructions are provided. No comparison CT's are available. FINDINGS: The ventricles, cisterns, and sulci appear within normal limits for size, shape and attenuation. There is no mass or mass effect. The [place] and white differentiation appear within normal limits. There is no CT evidence of intra or extraaxial fluid collection to suggest bleeding. The [place] and white differentiation appear within normal limits. Bone windows demonstrate no CT evidence of a fracture or dislocation of the skull. The paranasal sinuses are unremarkable. IMPRESSION: NO CT EVIDENCE OF AN ACUTE INTRACRANIAL PROCESS. JOB NUMBER: [id number] [facility]
== END 2018-03-22 19:17 | disposition home or self-care (01) ==
LOC: ER 15:57
DX: I50.9 Heart failure, unspecified (principal); R53.1 Weakness; R06.02 Shortness of breath; R42 Dizziness and giddiness; I48.91 Unspecified atrial fibrillation; Z79.01 Long term (current) use of anticoagulants; F17.210 Nicotine dependence, cigarettes, uncomplicated
CPT/HCPCS: 70450; 71046; 80053; 83880; 84484; 85027; 93005; 93010; 96374; 99284; J1940

== ENCOUNTER 2018-10-23 07:01 | Emergency (ER) | payer MEDICARE ==
[2018-10-23] MEDS ORDERED: ASPIRIN 81 MG CHEWABLE TABLET PO ONE (07:13)
[2018-10-23 07:22] LABS: BASO % 0.1 % (0-6); EOS % 3.4 % (0-6); HEMATOCRIT 42.6 % (42.0-52.0); HEMOGLOBIN 13.4 gm/dl (14.0-18.0); LYMPH % 10.3 % (16-45); MEAN CELL VOLUME 78.9 fl (81-97); MEAN CORPUSCULAR HEMOGLOBIN 24.8 pg (27-33); MEAN CORPUSCULAR HGB CONC 31.5 g/dl (32-36); MEAN PLATELET VOLUME 9.9 fl (7.4-10.4); MONO % 6.2 % (0-9); PLATELET COUNT 215 K/uL (130-400); WHITE BLOOD COUNT W/O DIFF 7.9 K/uL (4.2-12.2)
[2018-10-23 07:27] LABS: BLOOD UREA NITROGEN 13 mg/dL (8-23)
[2018-10-23 07:28] LABS: EST GLOMERULAR FILTRATION RATE > 60 mL/min; RED CELL DISTRIBUTION WIDTH 22.2 % (11.5-14.5); TOTAL PROTEIN 8.1 g/dL (6.6-8.7)
[2018-10-23 07:30] LABS: GLUCOSE,RANDOM 106 mg/dL (74-109)
[2018-10-23 07:31] LABS: INR 1.2; PARTIAL THROMBOPLASTIN TIME 44.8 SECONDS (24.5-39.1); PROTHROMBIN TIME (PATIENT) 12.3 SECONDS (9.5-12.1)
[2018-10-23 07:33] LABS: ALB/GLOB RATIO 0.9 (1.1-1.8); ALBUMIN 3.9 g/dL (4.0-5.0); ALKALINE PHOSPHATASE 102 U/L (40-129); ALT/SGPT 49 U/L (<41); AST/SGOT 34 U/L (10.0-50.0)
--- NOTE | 2018-10-23 07:59 | Emergency Department Record ---
History of Present Illness - General Chief Complaint: Palpitations Stated Complaint: Palpitation, CP Time Seen by Provider: 10/23/18 07:09 Source: Patient, RN notes reviewed Mode of Arrival: Ambulatory - History of Present Illness Initial Comments: palpatations and much worse last night and chest pain on and off for 2 weeks and his lasix increased recently and he has a history of CHF and atrial fib. Patient has home oxygen at 3 liters per minute. History of pulmonary fibrosis and chest xray today shows interstitual changes. No chest pain now Onset/Timin -: Week(s) Context: Other Arrythmia History: Atrial fibrillation Associated Symptoms: Denies other symptoms - Related Data Home Medications Medication Instructions Recorded Confirmed Last Taken Golimumab [Simponi] 12.5 mg IV ASDIR 10/23/18 10/23/18 1 Month Ago ~09/22/18 Spironolact/Hydrochlorothiazid 1 each PO BID 10/23/18 10/23/18 1 Day Ago [Aldactazide 25-25 Tablet] ~10/22/18 Tamsulosin HCl [Flomax] 0.4 mg PO DAILY 10/23/18 10/23/18 1 Day Ago ~10/22/18 Allergies Allergy/AdvReac Type Severity Reaction Status Date / Time ibuprofen Allergy Unknown RASH Verified 10/23/18 07:12 NSAIDS (Non-Steroidal Allergy Unknown RASH Verified 10/23/18 07:12 Anti-Inflamma Pyrazoles Allergy Unknown PT UNSURE Verified 10/23/18 07:12 OF REACTION Salicylates * Allergy Unknown PT UNSURE Verified 10/23/18 07:12 OF REACTION Travel Screening - Travel/Exposure Within Last 30 Days Have you traveled within the last 30 days?: No - Travel/Exposure Within Last Year Have you traveled outside the [place] in the last year?: No - Additonal Travel Details Have you been exposed to anyone with a communicable illness?: No - Travel Symptoms Symptom Screening: None Review of Systems Reviewed: No additional complaints except as noted below Constitutional: Reports: As per HPI. Denies: Chills, Fever, Malaise, Night sweats, Weakness, Weight change Eyes: Reports: As per HPI. Denies: Eye discharge, Eye pain, Photophobia, Vision change ENT: Reports: As per HPI. Denies: Congestion, Dental pain, Ear pain, Epistaxis , Hearing loss, Throat pain Respiratory: Reports: As per HPI. Denies: Cough, Dyspnea, Hemoptysis, Stridor, Wheezes Cardiovascular: Reports: As per HPI, Chest pain, Palpitations. Denies: Arrhythmia, Dyspnea on exertion, Edema, Murmurs, Orthopnea, Paroxysmal nocturnal dyspnea, Rheumatic Fever, Syncope Endocrine: Reports: As per HPI. Denies: Fatigue, Heat or cold intolerance, Polydipsia, Polyuria Gastrointestinal: Reports: As per HPI. Denies: Abdominal pain, Constipation, Diarrhea, Hematemesis, Hematochezia, Melena, Nausea, Vomiting Genitourinary: Reports: As per HPI. Denies: Dysuria, Frequency, Hematuria, Incontinence, Retention, Testicular pain, Testicular mass, Urgency Musculoskeletal: Reports: As per HPI. Denies: Arthralgia, Back pain, Gout, Joint swelling, Myalgia, Neck pain Skin: Reports: As per HPI. Denies: Bruising, Change in color, Change in hair/ nails, Lesions, Pruritus, Rash Neurological: Reports: As per HPI. Denies: Abnormal gait, Confusion, Headache, Numbness, Paresthesias, Seizure, Tingling, Tremors, Vertigo, Weakness Psychiatric: Reports: As per HPI. Denies: Anxiety, Auditory hallucinations, Depression, Homicidal thoughts, Suicidal thoughts, Visual hallucinations Hematological/Lymphatic: Reports: As per HPI. Denies: Anemia, Blood Clots, Easy bleeding, Easy bruising, Swollen glands Past Medical History - SOCIAL HISTORY Smoking Status: Light tobacco smoker (<10/day) Alcohol Use: None Drug Use: None - RESPIRATORY Hx Respiratory Disorders: Yes Hx Sleep Apnea: Yes Comment:: sleep issues - CARDIOVASCULAR Hx Cardio Disorders: Yes Hx Cardiac Cath: Yes Hx CHF: Yes Hx Irregular Heartbeat: Yes (A-Fib) Comment:: high cholesterol - NEURO Hx Neuro Disorders: No - GI Hx GI Disorders: Yes Hx Reflux: Yes Comment:: dyshagia - Hx Genitourinary Disorders: Yes Hx Prostate Problems: Yes (enlarged) Comment:: E.D. - ENDOCRINE Hx Endocrine Disorders: No - MUSCULOSKELETAL Hx Musculoskeletal Disorders: Yes Comment:: RA - PSYCH Hx Psych Problems: No - HEMATOLOGY/ONCOLOGY Hx Hematology/Oncology Disorders: No Hx Bruising: Yes (easy due to Xarelto) Family Medical History Any Significant Family History?: Yes Hx Cancer: Mother, Brother/Sister *Cancer Comment: Lung Hx Heart Disease: Mother, Brother/Sister Hx Resp Disorders: Mother, Brother/Sister *Resp Comment: lung cancer Physical Exam - General General Appearance: Alert, Oriented x3, Cooperative, No acute distress - Head Head exam: Normal inspection - Eye Eye exam: Normal appearance, PERRL Pupils: Normal accommodation - ENT ENT exam: Normal exam, Mucous membranes moist, Normal external ear exam, Normal orophraynx, TM's normal bilaterally Ear exam: Normal external inspection. negative: External canal tenderness Nasal Exam: Normal inspection. negative: Discharge, Sinus tenderness Mouth exam: Normal external inspection, Tongue normal Teeth exam: Normal inspection. negative: Dental caries Throat exam: Normal inspection. negative: Tonsillar erythema, Tonsillar exudate - Neck Neck exam: Normal inspection, Full ROM. negative: Tenderness - Respiratory Respiratory exam: Rales. negative: Respiratory distress - Cardiovascular Cardiovascular Exam: Regular rate, Normal rhythm, Normal heart sounds - GI/Abdominal GI/Abdominal exam: Soft, Normal bowel sounds. negative: Tenderness - Rectal Rectal exam: Deferred - exam: Deferred - Extremities Extremities exam: Normal inspection, Full ROM, Normal capillary refill. negative: Tenderness - Back Back exam: Reports: Normal inspection, Full ROM. 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 ] Respiratory 16 14 Rate Blood Pressure 134/97 [Left Arm] Blood Pressure 132/81 [Right Arm] Pulse Ox 98 95 - Reevaluation(s) Reevaluation #1: patient is feeling better 10/23/18 09:24 Medical Decision Making - Data Complexity MDM Data: Labs Ordered and/or Reviewed, X-Ray Ordered and/or Reviewed ( interstitual changes,possible pulmonary fibrosis) - Lab Data Result diagrams: 10/23/18 07:05 10/23/18 07:13 Lab Results 10/23/18 10/23/18 10/23/18 Range/Units 07:05 07:05 07:05 WBC 7.9 (4.2-12.2) K/uL RBC 5.40 (4.40-5.70) M/uL Hgb 13.4 L (14.0-18.0) gm/dl Hct 42.6 (42.0-52.0) % MCV 78.9 L (81-97) fl MCH 24.8 L (27-33) pg MCHC 31.5 L (32-36) g/dl RDW 22.2 H (11.5-14.5) % Plt Count 215 (130-400) K/uL MPV 9.9 (7.4-10.4) fl Gran % 80.0 (47-80) % Lymphocytes % 10.3 L (16-45) % Monocytes % 6.2 (0-9) % Eosinophils % 3.4 (0-6) % Basophils % 0.1 (0-6) % PT 12.3 H (9.5-12.1) SECONDS INR 1.2 APTT 44.8 H (24.5-39.1) SECONDS Sodium 127 L (136-145) mmol/L Potassium 4.3 (3.4-4.5) mmol/L Chloride 88 L (98-107) mmol/L Carbon Dioxide 28.0 (22-29) mmol/L Anion Gap 11.0 (7-16) BUN 13 (8-23) mg/dL Creatinine 1.0 (0.7-1.2) mg/dL Estimated GFR > 60 mL/min Random Glucose 106 (74-109) mg/dL Calcium 9.5 (8.8-10.2) mg/dL Total Bilirubin 0.30 (0.2-1.0) mg/dL AST 34 (10.0-50.0) U/L ALT 49 H (<41) U/L Alkaline Phosphatase 102 (40-129) U/L Troponin T < 0.010 (0-0.010) ng/mL Total Protein 8.1 (6.6-8.7) g/dL Albumin 3.9 L (4.0-5.0) g/dL Globulin 4.2 (1.4-4.8) gm/dL Albumin/Globulin Ratio 0.9 L (1.1-1.8) 10/23/18 Range/Units 07:13 WBC (4.2-12.2) K/uL RBC (4.40-5.70) M/uL Hgb (14.0-18.0) gm/dl Hct (42.0-52.0) % MCV (81-97) fl MCH (27-33) pg MCHC (32-36) g/dl RDW (11.5-14.5) % Plt Count (130-400) K/uL MPV (7.4-10.4) fl Gran % (47-80) % Lymphocytes % (16-45) % Monocytes % (0-9) % Eosinophils % (0-6) % Basophils % (0-6) % PT (9.5-12.1) SECONDS INR APTT (24.5-39.1) SECONDS Sodium Cancelled (136-145) mmol/L Potassium Cancelled (3.4-4.5) mmol/L Chloride Cancelled (98-107) mmol/L Carbon Dioxide Cancelled (22-29) mmol/L Anion Gap Cancelled (7-16) BUN Cancelled (8-23) mg/dL Creatinine Cancelled (0.7-1.2) mg/dL Estimated GFR Cancelled mL/min Random Glucose Cancelled (74-109) mg/dL Calcium Cancelled (8.8-10.2) mg/dL Total Bilirubin (0.2-1.0) mg/dL AST (10.0-50.0) U/L ALT (<41) U/L Alkaline Phosphatase (40-129) U/L Troponin T (0-0.010) ng/mL Total Protein (6.6-8.7) g/dL Albumin (4.0-5.0) g/dL Globulin (1.4-4.8) gm/dL Albumin/Globulin Ratio (1.1-1.8) Disposition Clinical Impression: Palpitations CAD (coronary artery disease) Qualifiers: Coronary Disease-Associated Artery/Lesion type: [place] artery [place] vs. transplanted heart: [place] heart Associated angina: without angina Qualified Code(s): I25.10 - Atherosclerotic heart disease of [place] coronary artery without angina pectoris Disposition: Home, Self-Care Instructions: Heart Palpitations (ED) Additional Instructions: decrease aldactazide to one a day and follow up with Dr Kevin next sunday as scheduled Forms: Patient Portal Access Time of Disposition: 09:26 Quality - Quality Measures Quality Measures: N/A - Blood Pressure Screening Does Patient Have Any of the Following: No Blood Pressure Classification: Pre-Hypertensive BP Reading Systolic Measurement: 132 Diastolic Measurement: 81 Screening for High Blood Pressure: < Pre-Hypertensive BP, F/U Documented > [ G8950] Pre-Hypertensive Follow-up Interventions: Referral to alternative/primary care provider.
== END 2018-10-23 09:30 | disposition home or self-care (01) ==
LOC: ER 07:01
DX: R00.2 Palpitations (principal); I50.9 Heart failure, unspecified; I25.10 Atherosclerotic heart disease of native coronary artery without angina pectoris; F17.210 Nicotine dependence, cigarettes, uncomplicated; I48.91 Unspecified atrial fibrillation
CPT/HCPCS: 71046; 80053; 84484; 85025; 85610; 85730; 93005; 93010; 99284

== ENCOUNTER 2019-08-20 13:55 | Emergency (ER) | payer MEDICARE ==
[2019-08-20] MEDS ORDERED: ASPIRIN 81 MG CHEWABLE TABLET PO ONE (14:17)
--- NOTE | 2019-08-20 14:17 | Emergency Department Record ---
History of Present Illness - General Chief Complaint: Chest Pain Stated Complaint: CHEST PAIN Time Seen by Provider: 08/20/19 14:05 Source: Patient, EMS, RN notes reviewed Mode of Arrival: EMS - History of Present Illness Initial Comments: 45 minutes ago left elbow pain and moved into his chest and no diaphoresis and primary is Dr. 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 PMH atrial fib and CHF RA COPD still smoking 6 cigs a day. uses xarelto, narcotic for RA and get infusions for RA. No cough or fever. Uses home oxygen 3 liters per min for 3 years Onset/Timin Pain Location: Left chest Pain Radiation: LUE Severity scale (1-10): 2 Quality: Aching, Other Consistency: Constant Treatments Prior to Arrival: None - Related Data Allergies Allergy/AdvReac Type Severity Reaction Status Date / Time ibuprofen Allergy Unknown RASH Verified 08/20/19 15:41 NSAIDS (Non-Steroidal Allergy Unknown RASH Verified 08/20/19 15:41 Anti-Inflamma Pyrazoles Allergy Unknown PT UNSURE Verified 08/20/19 15:41 OF REACTION Salicylates * Allergy Unknown PT UNSURE Verified 08/20/19 15:41 [Salicylates OF REACTION *RETIRED-12/07/15] Travel/Exposure Screening - Travel/Exposure Within Last 30 Days Have you traveled within the last 30 days?: No - Travel/Exposure Within Last Year Have you traveled outside the [place] in the last year?: No - Additonal Travel/Exposure Details Have you been exposed to anyone with a communicable illness?: No - Travel Symptoms Symptom Screening: None Review of Systems Reviewed: No additional complaints except as noted below Constitutional: Reports: As per HPI. Denies: Chills, Fever, Malaise, Night sweats, Weakness, Weight change Eyes: Reports: As per HPI. Denies: Eye discharge, Eye pain, Photophobia, Vision change ENT: Reports: As per HPI. Denies: Congestion, Dental pain, Ear pain, Epistaxis, Hearing loss, Throat pain Respiratory: Reports: As per HPI. Denies: Cough, Dyspnea, Hemoptysis, Stridor, Wheezes Cardiovascular: Reports: As per HPI, Chest pain. Denies: Arrhythmia, Dyspnea on exertion, Edema, Murmurs, Orthopnea, Palpitations, Paroxysmal nocturnal dyspnea, Rheumatic Fever, Syncope Endocrine: Reports: As per HPI. Denies: Fatigue, Heat or cold intolerance, Polydipsia, Polyuria Gastrointestinal: Reports: As per HPI. Denies: Abdominal pain, Constipation, Diarrhea, Hematemesis, Hematochezia, Melena, Nausea, Vomiting Genitourinary: Reports: As per HPI. Denies: Dysuria, Frequency, Hematuria, Incontinence, Retention, Testicular pain, Testicular mass, Urgency Musculoskeletal: Reports: As per HPI. Denies: Arthralgia, Back pain, Gout, Joint swelling, Myalgia, Neck pain Skin: Reports: As per HPI. Denies: Bruising, Change in color, Change in hair/n ails, Lesions, Pruritus, Rash Neurological: Reports: As per HPI. Denies: Abnormal gait, Confusion, Headache, Numbness, Paresthesias, Seizure, Tingling, Tremors, Vertigo, Weakness Psychiatric: Reports: As per HPI. Denies: Anxiety, Auditory hallucinations, Depression, Homicidal thoughts, Suicidal thoughts, Visual hallucinations Hematological/Lymphatic: Reports: As per HPI. Denies: Anemia, Blood Clots, Easy bleeding, Easy bruising, Swollen glands Past Medical History - SOCIAL HISTORY Smoking Status: Light tobacco smoker (<10/day) Alcohol Use: None Drug Use: None - RESPIRATORY Hx Respiratory Disorders: Yes Hx COPD: Yes Hx Sleep Apnea: Yes Hx of CPAP: Yes Comment:: sleep issues - CARDIOVASCULAR Hx Cardio Disorders: Yes Hx Cardiac Cath: Yes Hx CHF: Yes Hx Irregular Heartbeat: Yes (A-Fib) Comment:: high cholesterol - NEURO Hx Neuro Disorders: No - GI Hx GI Disorders: Yes Hx Reflux: Yes Comment:: dyshagia - Hx Genitourinary Disorders: Yes Hx Prostate Problems: Yes (enlarged) Comment:: E.D. - ENDOCRINE Hx Endocrine Disorders: No - MUSCULOSKELETAL Hx Musculoskeletal Disorders: Yes Comment:: RA - PSYCH Hx Psych Problems: No - HEMATOLOGY/ONCOLOGY Hx Hematology/Oncology Disorders: No Hx Bruising: Yes (easy due to Xarelto) Family Medical History Any Significant Family History?: No Hx Cancer: Mother, Brother/Sister *Cancer Comment: Lung Hx Heart Disease: Mother, Brother/Sister Hx Resp Disorders: Mother, Brother/Sister *Resp Comment: lung cancer Physical Exam - General General Appearance: Alert, Oriented x3, Cooperative, No acute distress - Head Head exam: Normal inspection - Eye Eye exam: Normal appearance, PERRL Pupils: Normal accommodation - ENT ENT exam: Normal exam, Mucous membranes moist, Normal external ear exam, Normal orophraynx, TM's normal bilaterally Ear exam: Normal external inspection. negative: External canal tenderness Nasal Exam: Normal inspection. negative: Discharge, Sinus tenderness Mouth exam: Normal external inspection, Tongue normal Teeth exam: Normal inspection. negative: Dental caries Throat exam: Normal inspection. negative: Tonsillar erythema, Tonsillar exudate - Neck Neck exam: Normal inspection, Full ROM. negative: Tenderness - Respiratory Respiratory exam: Normal lung sounds bilaterally. negative: Respiratory distress - Cardiovascular Cardiovascular Exam: Regular rate, Normal rhythm, Normal heart sounds - GI/Abdominal GI/Abdominal exam: Soft, Normal bowel sounds. negative: Tenderness - Rectal Rectal exam: Deferred - exam: Deferred - Extremities Extremities exam: Normal inspection, Full ROM, Normal capillary refill. negative: Tenderness - Back Back exam: Reports: Normal inspection, Full ROM. Denies: Muscle spasm, Rash noted, Tenderness - Neurological Neurological exam: Alert, Normal gait, Oriented X3, Reflexes normal - Psychiatric Psychiatric exam: Normal affect, Normal mood - Skin Skin exam: Dry, Intact, Normal color, Warm Course Vital Signs 08/20/19 13:58 Temperature 97.7 F Pulse Rate 55 L Respiratory 18 Rate Blood Pressure 119/66 Pulse Ox 97 - Reevaluation(s) Reevaluation #1: discussed case with Dr Carlos GUILLERMO and will transfer to [facility] and they are calling with a bed 08/20/19 16:34 Medical Decision Making - Lab Data Result diagrams: 08/20/19 15:00 08/20/19 15:00 Disposition Clinical Impression: Chest pain Qualifiers: Chest pain type: unspecified Qualified Code(s): R07.9 - Chest pain, unspecified Disposition: Acute Care Hospital Transfer Condition: (1) Good Instructions: Chest Pain (ED) Forms: Patient Portal Access Time of Disposition: 16:35 Quality - Quality Measures Quality Measures: N/A - Blood Pressure Screening Does Patient Have Any of the Following: No Blood Pressure Classification: Normal BP Reading Systolic Measurement: 119 Diastolic Measurement: 66 Screening for High Blood Pressure: < Normal BP, F/U Not Required > [G8783]
--- NOTE | 2019-08-20 15:09 | RADIOLOGY REPORT ---
EXAMINATION: Single View Chest EXAM DATE: 08/20/2019 2:41 PM TECHNIQUE: Single view chest INDICATION: chest pain COMPARISON: October 23, 2018 ENCOUNTER: Not applicable FINDINGS: Cardiac silhouette and upper mediastinal regions are stable. Redemonstration mixed primarily reticula r opacities within the lung denton bilaterally most predominant at the bases. Diffuse chronic interst itial coarse markings. Nodular densities perihilar regions bilaterally appear more prominent in jigar rison to previous exam. No pneumothorax or pleural effusion. IMPRESSION: Redemonstration coarse primarily reticular opacities within the lung denton most prominent at the cecily g bases. Interval increase in nodular densities in the perihilar regions. Consideration should be given to fur ther evaluation with CT of the chest. Dictated by: Dali Dey MD on 08/20/2019 3:03 PM. .
[2019-08-20 15:18] LABS: ABSOLUTE NEUTROPHIL COUNT 9.87; HEMATOCRIT 37.7 % (42.0-52.0); MEAN CELL VOLUME 72.8 fl (81-97); MEAN CORPUSCULAR HEMOGLOBIN 21.2 pg (27-33); MEAN CORPUSCULAR HGB CONC 29.2 g/dl (32-36); PLATELET COUNT 207 K/uL (130-400); RED BLOOD COUNT 5.18 M/uL (4.40-5.70); RED CELL DISTRIBUTION WIDTH 24.4 % (11.5-14.5); WHITE BLOOD COUNT W/O DIFF 12.1 K/uL (4.2-12.2)
[2019-08-20 15:31] LABS: BLOOD UREA NITROGEN 24 mg/dL (8-23)
[2019-08-20 15:32] LABS: CREATININE 1.1 mg/dL (0.7-1.2); EST GLOMERULAR FILTRATION RATE > 60 mL/min
[2019-08-20 15:34] LABS: GLUCOSE,RANDOM 159 mg/dL (74-109)
[2019-08-20 15:38] LABS: PLATELET ESTIMATE NORMAL (NORMAL)
== END 2019-08-20 17:40 | disposition short-term general hospital (02) ==
LOC: ER 13:55
DX: R07.89 Other chest pain (principal); I48.91 Unspecified atrial fibrillation; I50.9 Heart failure, unspecified; J44.9 Chronic obstructive pulmonary disease, unspecified; M06.9 Rheumatoid arthritis, unspecified; M25.522 Pain in left elbow; F17.210 Nicotine dependence, cigarettes, uncomplicated; Z79.01 Long term (current) use of anticoagulants; Z99.81 Dependence on supplemental oxygen
CPT/HCPCS: 71045; 80048; 83880; 84484; 85027; 85730; 93005; 93010; 99285